=== PATIENT | male | born 1970 | race Caucasian/White ===

== ENCOUNTER 2016-10-15 03:17 | Inpatient (IN) ==
[2016-10-15] MEDS ORDERED: 0.9 % Sodium Chloride 1,000 ML IVC ONE (03:49)
[2016-10-15 03:58] LABS: Hematocrit 36.4 % (37.5-50.1); Hemoglobin 10.9 g/dL (12.9-16.9); Mean Corpuscular HGB Conc 29.9 g/dL (31.6-35.5); Mean Corpuscular Hemoglobin 27.8 pg (28.0-33.3); Mean Corpuscular Volume 92.9 fL (83.0-100.0); Mean Platelet Volume 10.1 fL (9.4-12.4); Platelet Count 202 K/mcL (140-400); Red Blood Count 3.92 M/mcL (4.19-5.50); Red Cell Distribution Width 12.3 % (11.5-14.5)
[2016-10-15 03:58] LABS: ABG Base Excess -18.1 mEq/L (-2.0 to 3.0); ABG HCO3 15.3 mEQ/L (21-27); ABG Oxygen Saturation 100 % (95-98); ABG PO2 336 mmHg (85-104); ABG TCO2 17.7 mEq/L (20-26)
[2016-10-15 04:00] LABS: ABG PCO2 78 mmHg (35-45)
[2016-10-15 04:01] LABS: Blood Gas FiO2 100 %
[2016-10-15 04:03] LABS: Prothrombin Time 11.1 Seconds (9.4-12.1)
[2016-10-15 04:06] LABS: Amphetamine Screen,Urine Negative ng/mL (Cutoff=1000); Barbiturate Screen,Urine Negative ng/mL (Cutoff=200); Benzodiazepines Screen,Urine Negative ng/mL (Cutoff=200); Cannabinoid Screen,Urine Negative ng/mL (Cutoff = 50); Cocaine Screen,Urine Negative ng/mL (Cutoff= 300); Opiate Screen,Urine Negative ng/mL (Cutoff=300); Phencyclidine Screen,Urine Negative ng/mL (Cutoff=25)
[2016-10-15 04:06] LABS: Activated Partial Thrombo Time 35.6 Seconds (26.0-36.0)
[2016-10-15] MEDS ORDERED: *HR* EPINEPHrine 1 MG/10 ML SYRINGE ONE (04:06)
[2016-10-15 04:10] LABS: BUN/Creatinine Ratio 8 (6-26); Blood Urea Nitrogen 12 mg/dL (8-26); Calcium 7.7 mg/dL (8.6-10.8); Carbon Dioxide 14 mEq/L (19-29); Chloride 105 mEq/L (98-109); Glucose 303 mg/dL (70-99); Magnesium 2.8 mg/dL (1.6-2.6); Osmolality,Calculated 303 (280-300); Potassium 3.3 mEq/L (3.5-4.5); Sodium 141 mEq/L (136-145); eGFR For African Americans 57 (> 60); eGFR For Non-African Americans 47 (> 60)
[2016-10-15] MEDS: EPINEPHrine 1 MG in D5% in Water 250 ML IVC SCH (04:12)
[2016-10-15 04:19] LABS: Digoxin < 0.3 ng/mL (0.8-2.0)
[2016-10-15 04:43] LABS: Lymphocytes # 5.9 K/mcL (0.6-4.6); Monocytes # 0.7 K/mcL (0.0-1.3); Neutrophils # 2.3 K/mcL (1.6-8.9); Platelet Estimate Normal (Normal)
--- NOTE | 2016-10-15 04:44 | Emergency Department Note ---
Disposition Clinical Impression: Cardiac arrest, Cardiopulmonary arrest with successful resuscitation Disposition: Admitted As Inpatient Condition: Critical Time of Disposition: 07:12 General Adult HPI - General Chief complaint: ED Cardiac Arrest/CPR Stated complaint: full arrest Time Seen by Provider: 10/15/16 03:49 Source: EMS - History of Present Illness HPI Narrative: Full code. Brought in by EMS. Down time approximately 10 minutes. Possible seizure prior to code. Pain Scale: 0 - Related Data Allergies Allergy/AdvReac Type Severity Reaction Status Date / Time No Known Allergies Allergy Verified 10/15/16 04:11 Limitations: ROS unobtainable due to patients medical condition Past Medical History - Past Medical History Medical history: Reports: no medical history - Social History Smoking Status: Unknown if ever smoked Physical Exam Patient in full cardiac arrest. Pupils are fixed and dilated. After intubation patient's lung sounds are clear bilaterally. There is no sounds over the epigastrium. It does not appear like patient had suffered any trauma. There are no abrasions to patient. I do not appreciate any rashes on patient. There are no gross deformities to the patient's extremity. - General General appearance: in distress Course Course Narrative: Palpation brought in by EMS in full cardiac arrest. They report that he walked into an apartment had a seizure and then went down. They advise a systole for them the whole time. They did place 2IO's and gave 1 mg of epinephrine. They placed a Major airway. Patient was found to have ice in his pants whenever he was moved to our bed. CPR was resumed. Another IV was placed. He was given 2 mg of epinephrine and 1 mg of atropine and 2 mg of Narcan. At the next pulse check is found to be in V. fib. We defibrillated this. A pulse was then found. A 12-lead was ran and patient was intubated. The [address] elevation in V2. He had ST depression in V4, V5, and V6. Dr. Warner was called and advised to call Dr. Syed. Dr. Ortiz advised the patient was not a Senior Officer patient and to begin therapeutic hypothermia. Patient subsequently went into cardiac arrest again. CPR was began patient was given additional doses of epinephrine as well as atropine and Narcan. Patient was then found to be in a sinus rhythm again. Patient was placed on vasopressors to maintain a blood pressure. A femoral central line was placed. Patient was then admitted to the hospital service. Patient's blood work was unremarkable. He was not in seizure activity at any point during his stay here. His pupils were fixed and dilated on arrival in the emergency department. Patient was given an amp of bicarbonate due to his acidosis state. Vital Signs Temperature 97.6 F 10/15/16 03:20 Pulse Rate 0 10/15/16 03:20 Respiratory Rate 0 10/15/16 03:20 Blood Pressure 0/0 10/15/16 03:20 O2 Sat by Pulse Oximetry 0 L 10/15/16 03:20 Temperature 96.3 F L 10/15/16 04:43 Pulse Rate 97 10/15/16 05:27 Respiratory Rate 13 10/15/16 06:23 Blood Pressure 134/78 10/15/16 06:23 O2 Sat by Pulse Oximetry 99 10/15/16 05:28 Oxygen Delivery Oxygen Delivery Ventilator Procedures - Central Line Placement Right Femoral Central Line Inserted*: Yes Central Line Catheter Replacement*: No Central Line Insertion: emergent Procedural Pause: verify patient name and date of , timeout performed per policy Patient Placed on Monitor/Pulse Ox: Yes During the Procedure: clinician is wearing sterile gloves, cap, mask,& gown during insertion, sterile field and sterile technique are maintained, patient's face is covered with drape or mask and wearing a cap, everyone in room is wearing a mask Central Line Prep: Chlorhexidine scrub Prep the Procedure Site: apply chloraprep to the skin using a back and forth scrubbing motion, apply chloraprep for 30 seconds (upper body), 1-2 min ( femoral sites), allow prep to dry, drape the patient with a full body drape Ultrasound Used for Placement: Yes Central Line Lumen Inserted: triple Post Procedure: sutured in place, good blood return, all ports aspirated, flushed, capped, sterile dressing applied, guide wire removed and visualized, dressing is dated Post Procedure X-Ray: tip of catheter in good position Patient Tolerated Procedure: well Complications: none Name of Clinician Inserting Central Line: Vee GARCIA Clinician Assisting/Completing Checklist: Dr Cervantes - Intubation Time out performed: No sedative: none Laryngoscope: fiber optic video scope ET Tube Size: 7.5 ET Tube Uncuffed: No Tube Secured Depth (cm): 23 Tube Secured Location: lips Tube Placement Confirmation: visualized tube passing through cords, equal breath sounds bilaterally, no breath sounds over epigastrium, confirmation by capnometry Patient Tolerated Procedure: well Intubation Complications: none Medical Decision Making - Lab Data Result diagrams: 10/15/16 03:40 10/15/16 06:00 Lab Results 10/15/16 10/15/16 10/15/16 Range/Units 03:25 03:40 03:40 WBC 9.0 (4.3-11.1) K/mcL RBC 3.92 L (4.19-5.50) M/mcL Hgb 10.9 L (12.9-16.9) g/dL Hct 36.4 L (37.5-50.1) % MCV 92.9 (83.0-100.0) fL MCH 27.8 L (28.0-33.3) pg MCHC 29.9 L (31.6-35.5) g/dL RDW 12.3 (11.5-14.5) % Plt Count 202 (140-400) K/mcL MPV 10.1 (9.4-12.4) fL Seg Neutrophils % 24.0 % Band Neutrophils % 2.0 (0-4) % Lymphocytes % 66.0 % Monocytes % 8.0 % Neutrophils # 2.3 (1.6-8.9) K/mcL Lymphocytes # 5.9 H (0.6-4.6) K/mcL Monocytes # 0.7 (0.0-1.3) K/mcL Platelet Estimate Normal (Normal) PT 11.1 (9.4-12.1) Seconds INR 1.0 APTT 35.6 (26.0-36.0) Seconds ABG pH (7.32-7.45) pH Units ABG pCO2 (35-45) mmHg ABG pO2 (85-104) mmHg ABG HCO3 (21-27) mEQ/L ABG Total CO2 (20-26) mEq/L ABG O2 Saturation (95-98) % ABG Base Excess (-2.0 to 3.0) mEq/L Blood Gas Modality Inspired O2 % Sodium (136-145) mEq/L Potassium (3.5-4.5) mEq/L Chloride (98-109) mEq/L Carbon Dioxide (19-29) mEq/L BUN (8-26) mg/dL Creatinine (0.72-1.25) mg/dL Est GFR ( Amer) (> 60) Est GFR (Non-Af Amer) (> 60) BUN/Creatinine Ratio (6-26) Glucose (70-99) mg/dL Calculated Osmolality (280-300) Calcium (8.6-10.8) mg/dL Magnesium (1.6-2.6) mg/dL Troponin I (0-0.03) ng/mL Digoxin (0.8-2.0) ng/mL Urine Opiates Screen Negative (Agmkux=701) ng/mL Ur Barbiturates Screen Negative (Fwfcan=736) ng/mL Ur Phencyclidine Scrn Negative (Cutoff=25) ng/mL Ur Amphetamines Screen Negative (Vmafvg=5700) ng/mL U Benzodiazepines Scrn Negative (Dcmynh=815) ng/mL Urine Cocaine Screen Negative (Cutoff= 300) ng/mL U Marijuana (THC) Screen Negative (Cutoff = 50) ng/mL 10/15/16 10/15/16 10/15/16 Range/Units 03:40 03:40 03:50 WBC (4.3-11.1) K/mcL RBC (4.19-5.50) M/mcL Hgb (12.9-16.9) g/dL Hct (37.5-50.1) % MCV (83.0-100.0) fL MCH (28.0-33.3) pg MCHC (31.6-35.5) g/dL RDW (11.5-14.5) % Plt Count (140-400) K/mcL MPV (9.4-12.4) fL Seg Neutrophils % % Band Neutrophils % (0-4) % Lymphocytes % % Monocytes % % Neutrophils # (1.6-8.9) K/mcL Lymphocytes # (0.6-4.6) K/mcL Monocytes # (0.0-1.3) K/mcL Platelet Estimate (Normal) PT (9.4-12.1) Seconds INR APTT (26.0-36.0) Seconds ABG pH 6.90 L* (7.32-7.45) pH Units ABG pCO2 78 H* (35-45) mmHg ABG pO2 336 H (85-104) mmHg ABG HCO3 15.3 L (21-27) mEQ/L ABG Total CO2 17.7 L (20-26) mEq/L ABG O2 Saturation 100 H (95-98) % ABG Base Excess -18.1 L (-2.0 to 3.0) mEq/L Blood Gas Modality ASSIST CONTROL Inspired O2 100 % Sodium 141 (136-145) mEq/L Potassium 3.3 L (3.5-4.5) mEq/L Chloride 105 (98-109) mEq/L Carbon Dioxide 14 L (19-29) mEq/L BUN 12 (8-26) mg/dL Creatinine 1.58 H (0.72-1.25) mg/dL Est GFR ( Amer) 57 L (> 60) Est GFR (Non-Af Amer) 47 L (> 60) BUN/Creatinine Ratio 8 (6-26) Glucose 303 H (70-99) mg/dL Calculated Osmolality 303 H (280-300) Calcium 7.7 L (8.6-10.8) mg/dL Magnesium 2.8 H (1.6-2.6) mg/dL Troponin I 0.01 (0-0.03) ng/mL Digoxin < 0.3 L (0.8-2.0) ng/mL Urine Opiates Screen (Cgwngl=390) ng/mL Ur Barbiturates Screen (Ltlwqs=792) ng/mL Ur Phencyclidine Scrn (Cutoff=25) ng/mL Ur Amphetamines Screen (Adhxol=6389) ng/mL U Benzodiazepines Scrn (Kovvgd=254) ng/mL Urine Cocaine Screen (Cutoff= 300) ng/mL U Marijuana (THC) Screen (Cutoff = 50) ng/mL 10/15/16 Range/Units 04:55 WBC (4.3-11.1) K/mcL RBC (4.19-5.50) M/mcL Hgb (12.9-16.9) g/dL Hct (37.5-50.1) % MCV (83.0-100.0) fL MCH (28.0-33.3) pg MCHC (31.6-35.5) g/dL RDW (11.5-14.5) % Plt Count (140-400) K/mcL MPV (9.4-12.4) fL Seg Neutrophils % % Band Neutrophils % (0-4) % Lymphocytes % % Monocytes % % Neutrophils # (1.6-8.9) K/mcL Lymphocytes # (0.6-4.6) K/mcL Monocytes # (0.0-1.3) K/mcL Platelet Estimate (Normal) PT (9.4-12.1) Seconds INR APTT (26.0-36.0) Seconds ABG pH 7.20 L* D (7.32-7.45) pH Units ABG pCO2 54 H D (35-45) mmHg ABG pO2 222 H (85-104) mmHg ABG HCO3 21.1 (21-27) mEQ/L ABG Total CO2 22.8 (20-26) mEq/L ABG O2 Saturation 100 H (95-98) % ABG Base Excess -7.2 L (-2.0 to 3.0) mEq/L Blood Gas Modality ASSIST CONTROL Inspired O2 100 % Sodium (136-145) mEq/L Potassium (3.5-4.5) mEq/L Chloride (98-109) mEq/L Carbon Dioxide (19-29) mEq/L BUN (8-26) mg/dL Creatinine (0.72-1.25) mg/dL Est GFR ( Amer) (> 60) Est GFR (Non-Af Amer) (> 60) BUN/Creatinine Ratio (6-26) Glucose (70-99) mg/dL Calculated Osmolality (280-300) Calcium (8.6-10.8) mg/dL Magnesium (1.6-2.6) mg/dL Troponin I (0-0.03) ng/mL Digoxin (0.8-2.0) ng/mL Urine Opiates Screen (Wymmjm=275) ng/mL Ur Barbiturates Screen (Ozokvi=623) ng/mL Ur Phencyclidine Scrn (Cutoff=25) ng/mL Ur Amphetamines Screen (Wbxmjm=2019) ng/mL U Benzodiazepines Scrn (Zzbcjm=552) ng/mL Urine Cocaine Screen (Cutoff= 300) ng/mL U Marijuana (THC) Screen (Cutoff = 50) ng/mL Critical Care Time Critical Care Time: Yes Total Critical Care Time: 90 Attestation: Critical care performed: Time is exclusive of separately billable procedures. Time includes: direct patient care, patient reassessment, coordination of patient care, interpretation of data (laboratory data, radiology data, and respiratory data), review of patient's medical records, medical consultation and documentation of patient care. Procedures included in critical care time: Procedures excluded from critical care time: CPR, endotracheal intubation, right femoral central line placement Attestation Statement - Attestation Attestation: I, Valdo Cervantes MD, personally performed a history and physical exam of the patient and discussed their management with the resident. I reviewed the resident's note and agree with the documented findings, medical decision making , and plan of care. 47-year-old male presented to the emergency department by EMS in full cardiopulmonary arrest. This was a witnessed arrest. Bystanders reported that patient had a seizure and then became unresponsive. EMS reports on their arrival the patient was in asystole. Patient received epinephrine per left shoulder IO access per EMS. Here in the emergency department the patient had additional IV access established and received epinephrine and atropine IV. His initial rhythm was asystole then developed ventricular fibrillation after receiving epinephrine and atropine. He was defibrillated one time at 200 rhythm post defibrillation was again asystole. He then developed a rhythm with a pulse. Patient lost his pulse and CPR was started a second time. After receiving epinephrine he regained a pulse. He also received 2 mg of Narcan IV 2 doses during the code. Patient was briefly placed on a norepinephrine drip but again dropped his blood pressure and became bradycardic so this was switched to an epinephrine drip. A right femoral central line was placed by Dr. Garcia under my direct supervision. His chest x-ray showed good placement of the endotracheal tube and oral gastric tube. A Barone catheter was also inserted. Initial blood gas showed a pH of 6.9. Patient received 1 amp of sodium bicarbonate. Dr. Garcia discussed the case with the road supervisor on-call, Dr. Warner and also the adult neurologist mutton puncher, Dr. Neff. They recommended cooling and admission to ICU. Twelve-lead EKG obtained showed anterolateral ST segment depression. No STEMI. The hospitalist, Dr. Haddad, was consulted and accepted admission of the patient.
[2016-10-15 05:04] LABS: ABG Base Excess -7.2 mEq/L (-2.0 to 3.0); ABG HCO3 21.1 mEQ/L (21-27); ABG Oxygen Saturation 100 % (95-98); ABG PCO2 54 mmHg (35-45); ABG PO2 222 mmHg (85-104); ABG TCO2 22.8 mEq/L (20-26)
[2016-10-15 05:06] LABS: Blood Gas FiO2 100 %
[2016-10-15] MEDS ORDERED: Calcium Gluconate 2,000 MG in D5% in Water 100 ML IVPB ONE (05:33)
[2016-10-15] MEDS ORDERED: Naloxone 0.4 MG/ML INJ IVP PRN ×2 (05:37)
[2016-10-15] MEDS ORDERED: Acetaminophen 650 MG RECTAL SUPP RC PRN (05:37)
[2016-10-15] MEDS ORDERED: *HR* Promethazine 25 MG/ML VIAL IVP PRN (05:37)
[2016-10-15] MEDS ORDERED: *HR* Morphine 2 MG/ML SYRINGE IVP PRN (05:37)
[2016-10-15] MEDS ORDERED: *HR* LORazepam 2 MG/ML VIAL IVP PRN (05:37)
[2016-10-15] MEDS ORDERED: Ketorolac 30 MG/ML VIAL IVP PRN (05:37)
[2016-10-15] MEDS ORDERED: Lacri-Lube 3.5 GM TUBE BOTH EYES PRN (05:37)
[2016-10-15] MEDS ORDERED: FentaNYL (PF) 1,000 MCG in 0.9 % Sodium Chloride 80 ML IVC SCH (05:45)
[2016-10-15] MEDS ORDERED: 0.9 % Sodium Chloride 1,000 ML IVC SCH (05:45)
[2016-10-15] MEDS ORDERED: Metoclopramide 10 MG/2 ML VIAL IVP ONE (05:47)
[2016-10-15] MEDS ORDERED: *HR* EPINEPHrine 1 MG/10 ML SYRINGE IVP ONE ×3 (06:09→06:13)
[2016-10-15] MEDS ORDERED: *HR* Atropine Sulfate 1 MG/10 ML SYRINGE IVP ONE (06:15)
[2016-10-15] MEDS ORDERED: Dexamethasone 4 MG/ML VIAL IVP SCH (06:15)
[2016-10-15] MEDS ORDERED: *HR* Meperidine 25 MG/ML SYRINGE IVP PRN (06:20)
[2016-10-15] MEDS ORDERED: *HR* Midazolam HCl 2 MG/2 ML VIAL IVP PRN (06:24)
[2016-10-15] MEDS: Potassium Chloride 40 MEQ/200 ML BAG IVPB SCH ×2 (06:29→07:21)
[2016-10-15 06:30] LABS: Ionized Calcium 0.95 mmol/L (1.15-1.35)
[2016-10-15 06:33] LABS: Bilirubin,Urine Negative (Negative); Blood,Urine Moderate (Negative); Clarity,Urine Turbid (Clear); Color,Urine Yellow (Yellow); Glucose,Urine (UA) 250 mg/dL (Normal); Ketones,Urine Negative (Negative); Leukocyte Esterase,Urine Negative (Negative); Nitrite,Urine Negative (Negative); Protein,Urine 30 mg/dL (Neg-Trace); Specific Gravity,Urine 1.006 (1.010-1.025); Urobilinogen,Urine Normal (Normal)
[2016-10-15 06:37] LABS: Calcium 7.5 mg/dL (8.6-10.8); Potassium 4.2 mEq/L (3.5-4.5)
[2016-10-15 06:40] LABS: Alanine Aminotransferase 166 Units/L (0-55); Albumin/Globulin Ratio 0.9 (1.1-2.2); Alkaline Phosphatase 134 Units/L (38-126); Aspartate Amino Transferase 205 Units/L (5-34); Bilirubin,Direct 0.3 mg/dL (0.0-0.5); Bilirubin,Indirect 0.2 mg/dL (0.0-1.2); Bilirubin,Total 0.5 mg/dL (0.2-1.2); Creatine Kinase 484 Units/L (30-200); Ethanol < 10 mg/dL (0-10); Globulin 3.3 g/dL (2.4-3.5); Magnesium 2.4 mg/dL (1.6-2.6); Phosphorous 7.1 mg/dL (2.3-4.7); Total Protein 6.3 g/dL (6.0-8.3)
[2016-10-15 06:53] LABS: Squamous Epithelial Cell,Urine Few per lpf (None-Few)
[2016-10-15 06:54] LABS: Bacteria,Urine Many per hpf (None-Few); RBC,Urine 0-3 per hpf (0-3)
[2016-10-15 06:55] LABS: Hematocrit 39.2 % (37.5-50.1); Hemoglobin 12.4 g/dL (12.9-16.9); Mean Corpuscular HGB Conc 31.6 g/dL (31.6-35.5); Mean Corpuscular Hemoglobin 27.2 pg (28.0-33.3); Mean Platelet Volume 9.8 fL (9.4-12.4); Platelet Count 205 K/mcL (140-400); Red Blood Count 4.56 M/mcL (4.19-5.50); Red Cell Distribution Width 12.5 % (11.5-14.5)
[2016-10-15 06:55] LABS: Mucus,Urine Few (Few)
[2016-10-15] MEDS: Dexamethasone 4 MG/ML VIAL IVP STA ×2 (06:56→06:59)
--- NOTE | 2016-10-15 07:00 | Internal Med History&Physical ---
Date of Encounter: 10/15/16 Time of Encounter: 05:30 Assessment and Plan (1) Cardiopulmonary arrest with successful resuscitation Status: Acute . (2) Multi-organ system dysfunction Status: Acute . (3) Cardiogenic shock Status: Acute . (4) Ventilator dependent Status: Acute . (5) Acute respiratory failure with hypoxia and hypercapnia Status: Acute . (6) Acute anoxic encephalopathy Status: Acute . (7) Coma of unknown cause Status: Acute . (8) Unknown if patient has history of cardiac disorders Status: Acute . (9) Unknown if patient has history of psychiatric disorder Status: Acute . (10) Unknown if patient has history of neurologic disorder Status: Acute . (11) Unknown family medical history Status: Acute . (12) Hypochromic anemia Status: Acute . (13) Acute kidney injury Status: Acute . (14) Acute hyperglycemia Status: Acute . (15) Lactic acidemia Status: Acute . (16) Hypocalcemia Status: Acute . (17) Hyperphosphatemia Status: Acute . (18) Shock liver Status: Acute . (19) Transaminitis Status: Acute . (20) Rhabdomyolysis Status: Acute . Qualifiers: Rhabdomyolysis type: non-traumatic Qualified Code(s): M62.82 - Rhabdomyolysis Internal Medicine - H&P: HPI Chief complaint: Unresponsiveness Admitted From: Emergency Dept Plans for Post Hospital Care: Home History of present illness: Mr. Parveen Morin" is a ~49 year old male -Norwegian/non reported to be a [place] resident visiting locally. Significant medical history is unavailable. Significant social history is unavailable. Patient was found down and unresponsive. He was a witnessed arrest. Bystanders reported that the patient had a seizure and then became completely unresponsive. EMS reported that upon their arrival the patient was in asystole. Immediately assessed to be in full cardiopulmonary arrest requiring CPR and ACLS measures in the field. Following arrival to the emergency department the patient required defibrillation 2. Continued aggressive resuscitative efforts with the initiation of vasopressor support 2. Intubation and ventilator management for complete respiratory failure. Initial clinical findings supported acute severe respiratory acidosis and multiorgan derangements. Anoxic brain injury is suggested via fixed and dilated and unresponsive pupils. Absent gag reflex. Peripheral areflexia. Neurodegenerative injury suggested by unresponsive reaction to extreme noxious stimuli and ventilator management without sedation or paralysis. Total dependence on cardio-pulmonary support measures. General physical survey revealed no evidence of traumatic injuries or overt physical assault. This was no evidence for cutaneous or osseous deformities. There was no evidence for open wounds, abrasions, lacerations, rashes or cutaneous infections. There is no evidence for peripheral embolic phenomena, ecchymoses or hematoma, petechiae or purpura. Patient admitted with no personal records available or identifying information. The patient presents extreme risk for further acute clinical decline, morbidity and mortality. Findings in the ED: Initial vital signs temperature 97.6 pulse respiration rate 0 BP 0/0 O2 saturation pulse oximetry 0. Vital signs post initiation of ventilator support and vasopressors temperature 96.3 pulse 112 respiration 18 BP 130/75 O2 saturation 99%. WBC 9 hemoglobin 10.9 hematocrit 36.4 MCH 27.8 MCHC 29.9 platelets 202,000. Differential shows an increase in lymphocytes. PT 11.1 INR 1 PTT 35.6. Initial arterial blood gas pH 6.9 PCO2 78 PO2 336 bicarbonate 15.3 O2 saturation 100% assist control ventilator support. Follow- up arterial blood gas pH 7.2 PCO2 54 PO2 222 bicarbonate 21.1 O2 saturation of 100% assist control ventilator management. Metabolic panel sodium 141 potassium 3.3 chloride 105 carbon dioxide 14 creatinine 1.66 GFR 44 BUN 14. Glucose 303 osmolality 301. Lactic acid 3.8. Calcium 7.5. Ionized calcium 0.95. Phosphorus 7.1. Magnesium 2.4. Hepatic function ast 25 ALT 166 alkaline phosphatase 134. Creatinine kinase 484. Troponin 0.01. Albumin 3.0 total protein 6.3. Urinalysis. Large routine large glucose moderate blood. RBC 15 WBC and epithelial cells many bacteria few mucus. Toxicology digoxin negative, urine drug screen negative, ethyl alcohol negative. Portable chest x- ray findings lungs and pleural spaces without acute focal process. Cardiomediastinal silhouette without acute process. No evidence for pneumothorax. Osseous structures without acute process. Cervical spine without contrast demonstrated no acute abnormality. Normal alignment. No evidence for fracture or dislocation. No significant degenerative changes or prevertebral soft tissue swelling. CT head without contrast demonstrates diffuse cerebral edema. Likely cardiogenic in nature. No significant uncal HERNIATION identified. No acute hemorrhage fluid collection hydrocephalus or infarct noted. Moderate paranasal sinus disease identified. No abnormality visualized skull or soft tissue identified. EKG showed sinus tachycardia(121). Evolving left axis deviation. Anterolateral ST segment depression. LVH by voltage criteria. ?LAE. Incomplete right bundle branch ventricular conduction delay. No evidence for ST elevation myocardial infarction. Cumulative laboratory and radiographic data base was reviewed, considered and discussed. Orders were written as per the computerized physician chief order dispatcher system.......................................................................... .................... Consultative opinions will be sought as clinical circumstances justify. Initial consultative requests submitted to pulmonary/critical care medicine and cardiology. Pain management needs will be addressed. Therapeutic Hypothermia protocol initiated. Mechanical ventilator management protocols initiated. Initial intubation and sedation of ventilator support has not required formal sedation or paralysis. If needed intravenous fentanyl drip and IV Versed therapies provided. Consideration for Precedex versus Propyfol anesthesia if clinical status permits. Laboratory and radiographic data base will be updated as appropriate. Studies include: Cultures of blood and urine and sputum, cardiac injury panels, BNP, metabolic and hematologic panels, magnesium, phosphorus, ionized calcium, thyroid panel, lipid profile, A1c, C-peptide, CRP, sedimentation rate, respiratory infection profile, respiratory virus panel, blood gas, urinalysis, UDS, lactic acid, HIV and p24, prolactin, acute hepatitis profile, procalcitonin , serologies, etc. Precautions: Aspiration, fall, seizure, delirium protocol/surveillance initiated. Telemetry with continuous hemodynamic monitoring and pulse oximetry initiated. Empiric antibiotic coverage: pending culture data. Anoxic brain injury/vasogenic edema protocol initiated: Intravenous Decadron. Intubation and mechanical ventilator support. Recommendation for intravenous mannitol drip if hemodynamic status permits. Consideration for neurosurgical opinion and intervention if clinical status supports. Special studies: CT chest, CT head, CT cervical spine, KUB, chest x-ray, acute abdomen series, telemetry, EKG, echocardiogram, EEG. Pulmonary toilet: Incentive spirometry, aerosol bronchodilator, mucolytic, antitussive, supplemental oxygen. Corticosteroid therapy. CPAP/BiPAP supplemental oxygen delivery may be employed if clinical status permits.. Aerosol Mucomyst therapy may be employed. Fluid and electrolyte repletion efforts will proceed. Careful attention to fluid balance and renal recovery will be emphasized. Avoidance of nephrotoxic exposure and adverse drug drug interaction in the setting of impaired renal function will be monitored closely. Correction of metabolic and acid-base deficits will be emphasized. Acute coronary syndrome protocol/surveillance initiated. Acute [employer] injury protocol/surveillance initiated. Electrolyte replacement protocol/surveillance initiated. DVT and PUD prophylaxis initiated: PPI therapy, intermittent pneumatic cuffs. Subcutaneous heparin/Lovenox. Cardiovascular risk appraisal and cardiovascular risk reduction efforts will be emphasized. Physical and occupational therapy may be consulted to evaluate/assess patient's functional capacity and progress mobility if his circumstances allow. Nutrition consultation for initiation of tube feeds/enteral nutritional support as circumstances justif Plan of care has been reviewed and discussed with attending staff. instructional support services director/case management will be enlisted to assist in formal identification of "Mr. Zafar Morin" and complete appropriate contacts with family and/or associates when feasible. Hospital course will depend upon cumulative clinical findings, anticipated treatment responses and potential consultative interventions. Patient is at a high risk for further acute clinical decline, morbidity and mortality due to his presenting chief complaint, premorbid findings and underlying comorbidities in the setting of multiorgan derangements.. Condition is serious/critical. Prognosis is guarded/poor. CODE STATUS is full. Past Med Surg Social Fam HX - Past Medical History Source: unable to obtain Medical history: no medical history Psychiatric history: no psych history - Past Surgical History Surgical History: no surgical history - Social History Smoking Status: Unknown if ever smoked Alcohol use: unknown Drug use: unknown Occupational status: unemployed Current living situation: Other Activity Level: Other - Family History Mother Living Status: Still Living Hx Family Endocrine Disorder: Yes (Mother with diabetes) Internal Medicine - H&P: Meds Unable To Obtain [Unable to Obtain] 10/16/16 [History] Allergies trazodone Allergy (Verified 01/02/16 11:16) Difficulty Breathing slows breathing ROS unobtainable: due to mental status All Systems PM: A 10-system review of systems was performed and is negative for pertinent findings except as documented above in the HPI. The patient presents acutely encephalopathic. No available personal records retrieval. Family and friends unavailable for validation of circumstances and events. Details as collected through triage upon intake. - Constitutional Constitutional: as per HPI - EENT Eyes: as per HPI Ears: as per HPI Nose, mouth and throat: as per HPI - Cardiovascular Cardiovascular ROS IM: as per HPI - Respiratory Respiratory: as per HPI - Gastrointestinal Gastrointestinal: as per HPI - Genitourinary Genitourinary ROS male: as per HPI - Musculoskeletal Musculoskeletal ROS IM: as per HPI - Integumentary Integumentary IM: as per HPI - Neurological Neurological ROS: as per HPI - Psychiatric Psychiatric: as per HPI - Endocrine Endocrine IM: as per HPI - Hematologic/Lymphatic Hematologic/Lymphatic: as per HPI - Allergic/Immunologic Allergic/Immunologic: as per HPI - Constitutional Vitals: Temp Pulse Resp BP Pulse Ox 91.4 F L 117 13 134/78 94 L 10/15/16 06:15 10/15/16 06:15 10/15/16 06:23 10/15/16 06:23 10/15/16 06:15 General appearance: Present: A&O X 0, severe distress. Absent: cooperative, answers questions appropriately - Head Head exam: Present: atraumatic, normocephalic - Expanded Head Exam Head exam expanded: Absent: abrasion, Chand's sign, contusion, hematoma, laceration, raccoon eyes - Eye Eye exam: Present: conjuntiva pink, sclera anicteric. Absent: periorbital swelling Pupils: Present: fixed (Fixed and dilated, left greater than right), irregular ( Irregular border of pupillary dilatation right eye. Haziness of lenses bilaterally.), unequal - Expanded Eye Exam Pupils: nonreactive/fixed: Bilateral - ENT ENT exam: Present: mucous membranes moist, normal external ear exam, normal oropharynx - Neck Neck exam general surgery: Present: supple, trachea midline. Absent: lymphadenopathy, nuchal rigidity - Expanded Neck Exam Neck exam: Absent: anterior neck swelling, carotid bruit, midline deformity, thyroid mass, tracheal deviation - Respiratory Respiratory exam: Present: decreased breath sounds, CTAB. Absent: accessory muscle use, rales, rhonchi, wheezes - Cardiovascular Cardiovascular exam: Present: distant heart sounds, RRR, +S1, +S2, tachycardia. Absent: diastolic murmur, gallop, rubs, systolic murmur - GI/Abdominal GI/Abdominal exam: Present: diminished bowel sounds, soft, no peritoneal signs. Absent: distended, tenderness - Expanded GI/Abdominal Exam GI/Abdominal exam expanded: Absent: ascites, heel tap sign, Green's sign, obturator sign, psoas sign, Rovsing's sign, tenderness at McBurney's Point - Extremities Exam Extremities exam: Present: warm, radial pulses palpable and symetrical. Absent : calf tenderness, cyanotic, pedal edema - Neurological Exam Neurological exam: Present: altered, motor sensory deficit. Absent: alert, CN II-XII intact, oriented X3, reflexes normal, no focal deficits, pronater drift, facial droop, speech deficit - Expanded Neurological Exam Neurological exam expanded: Absent: protecting the airway Patient oriented to: Absent: person, place, time Coma Scale Eye Opening: None Coma Scale Motor Response: None Coma Scale Verbal Response: None Coma Scale Total: 3 - Psychiatric Psychiatric exam: Present: flat affect - Skin Skin exam: Present: dry, intact, warm. Absent: abrasion, erythema, excoriation , petechiae, rash, urticaria, vesicles Internal Med - H&P Results - Labs CBC & Chem 7: 10/16/16 13:05 10/16/16 04:25 Labs: BMP 10/15/16 06:00 Sodium 140 Potassium 4.2 Chloride 107 Carbon Dioxide 21 BUN 14 Creatinine 1.66 H Glucose 280 H Calcium 7.5 L Liver Function 10/15/16 Range/Units 06:00 Total Bilirubin 0.5 (0.2-1.2) mg/dL Direct Bilirubin 0.3 (0.0-0.5) mg/dL AST 205 H (5-34) Units/L ALT 166 H (0-55) Units/L Alkaline Phosphatase 134 H (38-126) Units/L Albumin 3.0 L (3.5-5.0) g/dL Urine 10/15/16 Range/Units 06:10 Urine Color Yellow (Yellow) Urine Clarity Turbid A (Clear) Urine pH 7.0 (5.0-8.0) pH Units Ur Specific [place] 1.006 L (1.010-1.025) Urine Protein 30 H (Neg-Trace) mg/dL Urine Glucose (UA) 250 H (Normal) mg/dL - Impressions Vital Signs Temp Pulse Resp BP Pulse Ox 10/15/16 06:30 91.4 F L 115 12 122/88 97 10/15/16 06:23 13 134/78 10/15/16 06:15 91.4 F L 117 12 120/78 94 L 10/15/16 06:00 91.4 F L 122 12 152/104 96 10/15/16 05:50 91.8 F L 121 12 154/111 96 10/15/16 05:28 12 99 10/15/16 05:27 97 157/91 97 10/15/16 04:43 96.3 F L 112 130/75 99 10/15/16 04:34 112 135/76 99 10/15/16 04:22 96 107/83 99 10/15/16 04:15 84 80/47 98 10/15/16 04:10 100 10/15/16 04:03 116 18 128/56 100 10/15/16 03:40 100 10/15/16 03:20 97.6 F 0 0 0/0 0 L Intake and Output 10/14/16 10/14/16 10/15/16 15:59 23:59 07:59 Intake Total 1051 / 1051 Output Total 700 / 700 Balance 351 / 351 Intake: IV Fluids 1051 / 1051 0.9 % Sodium Chloride 1, 1000 / 1000 000 ML @ 3750 mls/hr IVC .Q16M ONE Rx#:[id number] EPINEPHrine 1 MG In 51 / 51 Dextrose 5% 250 ML @ 0.1 MCG/KG/MIN 126.37 mls/hr IVC CONT SHARMIN Rx#: [id number] Output: Catheter 700 / 700 Other: Weight 83.915 kg Patient Weight 10/15/16 23:59 Weight 83.915 kg Short CBC 10/15/16 10/15/16 Range/Units 06:00 03:40 WBC 5.0 9.0 (4.3-11.1) K/mcL Hgb 12.4 L D 10.9 L (12.9-16.9) g/dL Hct 39.2 36.4 L (37.5-50.1) % Plt Count 205 202 (140-400) K/mcL Neutrophils # 2.3 (1.6-8.9) K/mcL BMP 10/15/16 10/15/16 Range/Units 06:00 03:40 Sodium 140 141 (136-145) mEq/L Potassium 4.2 3.3 L (3.5-4.5) mEq/L Chloride 107 105 (98-109) mEq/L Carbon Dioxide 21 14 L (19-29) mEq/L BUN 14 12 (8-26) mg/dL Creatinine 1.66 H 1.58 H (0.72-1.25) mg/dL Glucose 280 H 303 H (70-99) mg/dL Calcium 7.5 L 7.7 L (8.6-10.8) mg/dL Cardiac Enzymes 10/15/16 Range/Units 03:40 Troponin I 0.01 (0-0.03) ng/mL Liver Function 10/15/16 Range/Units 06:00 Total Bilirubin 0.5 (0.2-1.2) mg/dL Direct Bilirubin 0.3 (0.0-0.5) mg/dL AST 205 H (5-34) Units/L ALT 166 H (0-55) Units/L Alkaline Phosphatase 134 H (38-126) Units/L Albumin 3.0 L (3.5-5.0) g/dL Urine 10/15/16 Range/Units 06:10 Urine Color Yellow (Yellow) Urine Clarity Turbid A (Clear) Urine pH 7.0 (5.0-8.0) pH Units Ur Specific [place] 1.006 L (1.010-1.025) Urine Protein 30 H (Neg-Trace) mg/dL Urine Glucose (UA) 250 H (Normal) mg/dL 10/15/16 10/15/16 03:50 04:55 ABG pH 6.90 L* 7.20 L* D ABG pCO2 78 H* 54 H D ABG pO2 336 H 222 H ABG HCO3 15.3 L 21.1 ABG Total CO2 17.7 L 22.8 ABG O2 Saturation 100 H 100 H ABG Base Excess -18.1 L -7.2 L Abnormal lab results Hgb 12.4 g/dL (12.9-16.9) L D 10/15/16 06:00 MCH 27.2 pg (28.0-33.3) L 10/15/16 06:00 Lymphocytes # 5.9 K/mcL (0.6-4.6) H 10/15/16 03:40 ABG pH 7.20 pH Units (7.32-7.45) L* D 10/15/16 04:55 ABG pCO2 54 mmHg (35-45) H D 10/15/16 04:55 ABG pO2 222 mmHg (85-104) H 10/15/16 04:55 ABG O2 Saturation 100 % (95-98) H 10/15/16 04:55 ABG Base Excess -7.2 mEq/L (-2.0 to 3.0) L 10/15/16 04:55 Creatinine 1.66 mg/dL (0.72-1.25) H 10/15/16 06:00 Est GFR ( Amer) 53 (> 60) L 10/15/16 06:00 Est GFR (Non-Af Amer) 44 (> 60) L 10/15/16 06:00 Glucose 280 mg/dL (70-99) H 10/15/16 06:00 POC Glucose 259 (58-89) H 10/15/16 06:00 Calculated Osmolality 301 (280-300) H 10/15/16 06:00 Lactic Acid 3.8 mmol/L (0.5-2.2) H 10/15/16 06:00 Calcium 7.5 mg/dL (8.6-10.8) L 10/15/16 06:00 Ionized Calcium 0.95 mmol/L (1.15-1.35) L 10/15/16 06:00 Phosphorus 7.1 mg/dL (2.3-4.7) H 10/15/16 06:00 AST 205 Units/L (5-34) H 10/15/16 06:00 ALT 166 Units/L (0-55) H 10/15/16 06:00 Alkaline Phosphatase 134 Units/L (38-126) H 10/15/16 06:00 Creatine Kinase 484 Units/L (30-200) H 10/15/16 06:00 Albumin 3.0 g/dL (3.5-5.0) L 10/15/16 06:00 Albumin/Globulin Ratio 0.9 (1.1-2.2) L 10/15/16 06:00 Urine Clarity Turbid (Clear) A 10/15/16 06:10 Ur Specific [place] 1.006 (1.010-1.025) L 10/15/16 06:10 Urine Protein 30 mg/dL (Neg-Trace) H 10/15/16 06:10 Urine Glucose (UA) 250 mg/dL (Normal) H 10/15/16 06:10 Urine Blood Moderate (Negative) H 10/15/16 06:10 Urine Microscopic WBC 5-15 per hpf (0-3) H 10/15/16 06:10 Urine Bacteria Many per hpf (None-Few) H 10/15/16 06:10 Digoxin < 0.3 ng/mL (0.8-2.0) L 10/15/16 03:40 No Known Allergies Allergy (Verified 10/15/16 04:11) Laboratory Results WBC 5.0 K/mcL (4.3-11.1) 10/15/16 06:00 RBC 4.56 M/mcL (4.19-5.50) 10/15/16 06:00 Hgb 12.4 g/dL (12.9-16.9) L D 10/15/16 06:00 Hct 39.2 % (37.5-50.1) 10/15/16 06:00 MCV 86.0 fL (83.0-100.0) 10/15/16 06:00 MCH 27.2 pg (28.0-33.3) L 10/15/16 06:00 MCHC 31.6 g/dL (31.6-35.5) 10/15/16 06:00 RDW 12.5 % (11.5-14.5) 10/15/16 06:00 Plt Count 205 K/mcL (140-400) 10/15/16 06:00 MPV 9.8 fL (9.4-12.4) 10/15/16 06:00 Seg Neutrophils % 24.0 % 10/15/16 03:40 Band Neutrophils % 2.0 % (0-4) 10/15/16 03:40 Lymphocytes % 66.0 % 10/15/16 03:40 Monocytes % 8.0 % 10/15/16 03:40 Neutrophils # 2.3 K/mcL (1.6-8.9) 10/15/16 03:40 Lymphocytes # 5.9 K/mcL (0.6-4.6) H 10/15/16 03:40 Monocytes # 0.7 K/mcL (0.0-1.3) 10/15/16 03:40 Platelet Estimate Normal (Normal) 10/15/16 03:40 PT 11.1 Seconds (9.4-12.1) 10/15/16 03:40 INR 1.0 10/15/16 03:40 APTT 35.6 Seconds (26.0-36.0) 10/15/16 03:40 ABG pH 7.20 pH Units (7.32-7.45) L* D 10/15/16 04:55 ABG pCO2 54 mmHg (35-45) H D 10/15/16 04:55 ABG pO2 222 mmHg (85-104) H 10/15/16 04:55 ABG HCO3 21.1 mEQ/L (21-27) 10/15/16 04:55 ABG Total CO2 22.8 mEq/L (20-26) 10/15/16 04:55 ABG O2 Saturation 100 % (95-98) H 10/15/16 04:55 ABG Base Excess -7.2 mEq/L (-2.0 to 3.0) L 10/15/16 04:55 Blood Gas Modality ASSIST CONTROL 10/15/16 04:55 Inspired O2 100 % 10/15/16 04:55 Sodium 140 mEq/L (136-145) 10/15/16 06:00 Potassium 4.2 mEq/L (3.5-4.5) 10/15/16 06:00 Chloride 107 mEq/L (98-109) 10/15/16 06:00 Carbon Dioxide 21 mEq/L (19-29) 10/15/16 06:00 BUN 14 mg/dL (8-26) 10/15/16 06:00 Creatinine 1.66 mg/dL (0.72-1.25) H 10/15/16 06:00 Est GFR ( Amer) 53 (> 60) L 10/15/16 06:00 Est GFR (Non-Af Amer) 44 (> 60) L 10/15/16 06:00 BUN/Creatinine Ratio 8 (6-26) 10/15/16 06:00 Glucose 280 mg/dL (70-99) H 10/15/16 06:00 POC Glucose 259 (58-89) H 10/15/16 06:00 Calculated Osmolality 301 (280-300) H 10/15/16 06:00 Lactic Acid 3.8 mmol/L (0.5-2.2) H 10/15/16 06:00 Calcium 7.5 mg/dL (8.6-10.8) L 10/15/16 06:00 Ionized Calcium 0.95 mmol/L (1.15-1.35) L 10/15/16 06:00 Phosphorus 7.1 mg/dL (2.3-4.7) H 10/15/16 06:00 Magnesium 2.4 mg/dL (1.6-2.6) 10/15/16 06:00 Total Bilirubin 0.5 mg/dL (0.2-1.2) 10/15/16 06:00 Direct Bilirubin 0.3 mg/dL (0.0-0.5) 10/15/16 06:00 Indirect Bilirubin 0.2 mg/dL (0.0-1.2) 10/15/16 06:00 AST 205 Units/L (5-34) H 10/15/16 06:00 ALT 166 Units/L (0-55) H 10/15/16 06:00 Alkaline Phosphatase 134 Units/L (38-126) H 10/15/16 06:00 Creatine Kinase 484 Units/L (30-200) H 10/15/16 06:00 Troponin I 0.01 ng/mL (0-0.03) 10/15/16 03:40 Serum Total Protein 6.3 g/dL (6.0-8.3) 10/15/16 06:00 Albumin 3.0 g/dL (3.5-5.0) L 10/15/16 06:00 Globulin 3.3 g/dL (2.4-3.5) 10/15/16 06:00 Albumin/Globulin Ratio 0.9 (1.1-2.2) L 10/15/16 06:00 Urine Color Yellow (Yellow) 10/15/16 06:10 Urine Clarity Turbid (Clear) A 10/15/16 06:10 Urine pH 7.0 pH Units (5.0-8.0) 10/15/16 06:10 Ur Specific [place] 1.006 (1.010-1.025) L 10/15/16 06:10 Urine Protein 30 mg/dL (Neg-Trace) H 10/15/16 06:10 Urine Glucose (UA) 250 mg/dL (Normal) H 10/15/16 06:10 Urine Ketones Negative mg/dL (Negative) 10/15/16 06:10 Urine Blood Moderate (Negative) H 10/15/16 06:10 Urine Nitrite Negative (Negative) 10/15/16 06:10 Urine Bilirubin Negative (Negative) 10/15/16 06:10 Urine Urobilinogen Normal mg/dL (Normal) 10/15/16 06:10 Ur Leukocyte Esterase Negative (Negative) 10/15/16 06:10 Urine Microscopic RBC 0-3 per hpf (0-3) 10/15/16 06:10 Urine Microscopic WBC 5-15 per hpf (0-3) H 10/15/16 06:10 Ur Squamous Epith Cells Few per lpf (None-Few) 10/15/16 06:10 Urine Bacteria Many per hpf (None-Few) H 10/15/16 06:10 Urine Mucus Few (Few) 10/15/16 06:10 Digoxin < 0.3 ng/mL (0.8-2.0) L 10/15/16 03:40 Urine Opiates Screen Negative ng/mL (Ktallp=702) 10/15/16 03:25 Ur Barbiturates Screen Negative ng/mL (Ymslrk=016) 10/15/16 03:25 Ur Phencyclidine Scrn Negative ng/mL (Cutoff=25) 10/15/16 03:25 Ur Amphetamines Screen Negative ng/mL (Ytkaul=8910) 10/15/16 03:25 U Benzodiazepines Scrn Negative ng/mL (Gjcudv=222) 10/15/16 03:25 Urine Cocaine Screen Negative ng/mL (Cutoff= 300) 10/15/16 03:25 U Marijuana (THC) Screen Negative ng/mL (Cutoff = 50) 10/15/16 03:25 Ethyl Alcohol < 10 mg/dL (0-10) 10/15/16 06:00 Impressions Chest X-Ray 10/15/16 03:50 IMPRESSION: No acute process. Endotracheal tube located 2.8 cm above the loretta D/ / Kuldeep Jasmine MD / Kuldeep Jasmine MD Interpreting Provider: Kuldeep Jasmine MD X-Ray 10/15/16 04:30 IMPRESSION: Right femoral catheter is identified with the tip projecting over the right sacral ala of D/ / Kuldeep Jasmine MD / Kuldeep Jasmine MD Interpreting Provider: Kuldeep Jasmine MD Cervical Spine CT 10/15/16 04:49 IMPRESSION: No acute abnormality of the cervical spine. D/ / Kuldeep Jasmine MD / Kuldeep Jasmine MD Interpreting Provider: Kuldeep Jasmine MD Head CT 10/15/16 04:49 IMPRESSION: Diffuse cerebral edema likely cardiogenic in nature. No significant uncal herniation is identified. D/ / Kuldeep Jasmine MD / Kuldeep Jasmine MD Interpreting Provider: Kuldeep Jasmine MD
[2016-10-15] MEDS: Pantoprazole 40 MG VIAL IVP SCH (07:56)
[2016-10-15] MEDS: *HR* Heparin 5,000 UNIT/ML VIAL SQ SCH ×3 (07:56→23:15)
[2016-10-15] MEDS: Chlorhexidine Rinse 15 ML MOUTHWASH MM SCH ×2 (07:56→20:48)
[2016-10-15 08:09] LABS: Acetaminophen < 1.0 mcg/mL (10-30); Salicylate < 5.0 mg/dL (15-30)
[2016-10-15] MEDS ORDERED: Potassium Chloride 40 MEQ/200 ML BAG IVPB PRN ×2 (08:50→09:12)
[2016-10-15] MEDS ORDERED: Nystatin SUSP 5 ML UD.LIQ PO SCH (09:00)
[2016-10-15] MEDS ORDERED: Docusate Oral Soln 100 MG/10 ML UDC GTUBE SCH (09:00)
[2016-10-15] MEDS ORDERED: Magnesium Sulfate 2 GM in D5% in Water 100 ML IVPB PRN (09:12)
[2016-10-15] MEDS ORDERED: Calcium Gluconate 1,000 MG in D5% in Water 100 ML IVPB PRN (09:12)
[2016-10-15 09:19] LABS: ABG Base Excess -1.3 mEq/L (-2.0 to 3.0); ABG HCO3 24.8 mEQ/L (21-27); ABG Oxygen Saturation 91 % (95-98); ABG PCO2 46 mmHg (35-45); ABG PH 7.34 pH Units (7.32-7.45); ABG PO2 64 mmHg (85-104); ABG TCO2 26.2 mEq/L (20-26); Blood Gas FiO2 60 %
[2016-10-15] MEDS: Lacri-Lube 3.5 GM TUBE BOTH EYES SCH ×5 (09:36→23:41)
[2016-10-15] MEDS: Norepinephrine 4 MG in D5% in Water 250 ML IV SCH (10:38)
--- NOTE | 2016-10-15 11:43 | EEG/EMG/Oth Biometrics Report ---
EEG Procedure Report Date of procedure: 10/15/16 EEG Procedure: Routine EEG Procedure Note: PT found unresponsive, no history available, intubated no sedation Routine EEG Routine 18-channel digital EEG was obtained to rule out any seizure activity or focal abnormalities, on a patient who is unresponsive on ventilator. FINDINGS: Background rhythm shows less -organized, less -developed, average voltage 2- 3 hertz very low amplitude delta activity in the posterior regions. with no reactivity to any external stimuli, No [id number]-tbtu discharges or any lateralizing abnormalities are seen. Photic stimulation did not produce any abnormalities. Hyperventilation was not performed. Intermittent artifacts particularly in t3 and t5 leads were seen. IMPRESSION: Significantly Abnormal study. No epileptiform discharges or any other paroxysmal activities or focal abnormalities seen. This study shows significant slowing at the level of almost no brain activity, this pattern of abnormal activity is usually seen as severe encephalopathy particularly anoxic hypoxic encephalopathy, as well as with other metabolic encephalopathies consistent with diffuse cortical dysfunction. Pattern usually associated with poor clinical outcome. Clinical correlation is recommended
[2016-10-15 12:15] LABS: Ionized Calcium 1.16 mmol/L (1.15-1.35)
[2016-10-15 12:21] LABS: Magnesium 2.6 mg/dL (1.6-2.6)
[2016-10-15 12:22] LABS: Phosphorous 1.1 mg/dL (2.3-4.7)
[2016-10-15] MEDS ORDERED: D5% in Water 1,000 ML IVC SCH (13:30)
[2016-10-15] MEDS: Sodium Phosphate 30 MMOL in D5% in Water 100 ML IVPB PRN (15:00)
--- NOTE | 2016-10-15 16:41 | Electrocardiograph Report ---
[facility] Test Date: 2016-10-15 Pat Name: Benoit Rahman Department: 105 Room: 06 Gender: M Rn Wellness: ROSARIO : 1970 Requested By: Derrek Quintana Order Number: [id number] Reading MD: Domingo Sharpe DO Measurements Intervals [place] Rate: 101 P: DE: 0 QRS: 24 QRSD: 112 T: -9 QT: 388 QTc: 446 Interpretive Statements Atrial fibrillation with RVR Incomplete RBBB Anterolateral ST-T changes possibly due to ischemia Electronically Signed On 10-15-16 16:40:50 EST by Domingo Sharpe DO
--- NOTE | 2016-10-15 16:43 | Electrocardiograph Report ---
[facility] Test Date: 2016-10-15 Pat Name: Benoit Rahman Department: 105 Room: 06 Gender: M Salon/Spa Manager: ROSARIO : 1970 Requested By: Vee Allen Order Number: [id number] Reading MD: Domingo Sharpe DO Measurements Intervals [place] Rate: 121 P: 67 RI: 166 QRS: 15 QRSD: 102 T: 31 QT: 352 QTc: 424 Interpretive Statements Sinus tachycardia ST-T changes due to rate Electronically Signed On 10-15-16 16:41:54 EST by Domingo Sharpe DO
--- NOTE | 2016-10-15 17:18 | Event Note ---
<Vik Juarez - Last Filed: 10/15/16 17:10> Date of Encounter: 10/15/16 Time of Encounter: 07:00 Please note that this is a pulmonology consult note as currently a system air is not allowing documentation under the pulmonology consult note setting. Subjective: Patient presented overnight after cardiac arrest. Information prior to arrival to the limited. There is concern that the patient was down for 10 minutes prior to EMS arrival. Upon EMS arrival the patient was found to be in asystole. ACLS was initiated and the patient was transported to the ED. Upon arrival ACLS was continued. At some point the patient was found to have ventricular fibrillation and was defibrillated. The pulse was returned at that time. Shortly thereafter the patient lost the pulse and was defibrillated again. Patient was then stabilized and transferred to the emergency department. Upon arrival here hypothermia protocol was initiated. There are no family or witnesses of this event or related to the patient that can be found at this time. Law Enforcement is assisting in identifying the patient: Objective: Please see vital signs in the chart Gen.: Patient is comatose and does not respond to commands at this time. Patient is cool to touch Cardiac: Heart is regular rhythm, tachycardic. There are no murmurs, rubs, gallops. Respiratory: Patient is intubated and mechanically ventilated. Lungs are diminished but clear. There are no rales, rhonchi, wheezes. Abdomen: Abdomen is soft, nontender, nondistended. There are no bowel sounds. There is no rigidity or guarding noted Extremities: Peripheral pulses palpable in all 4 extremities. Extremities are cool to touch. There is no edema or cyanosis noted Neuro: GCS 3. All reflexes are absent. Pupils are fixed and dilated. There is no spontaneous movement in any extremities. There is no response to pain. Assessment and plan: #1. Cardiac arrest: Cause unknown at this time. Differential includes cardiac event, drug overdose. There is isolated ST elevation and a single lead however there is no evidence of a large scale cardiac event. Echo pending. Cardiology has been consulted. Tox screen was negative. We will continue with therapeutic hypothermia. #2. Anoxic brain injury: Likely related to cardiac arrest as stated above. EEG shows almost no brain activity related to severe anoxic brain injury. We will continue with hypothermia protocol for 24 hours. Upon rewarming we will assess the patient's neurologic status. Prognosis is extremely poor. #3. Acute kidney injury: Creatinine is elevated on presentation at 1.66. Likely related to hypoperfusion in the setting of cardiac arrest. Patient has good urine output. We will continue to monitor. #4. Elevated liver enzymes: Likely related to hypoperfusion in the setting of cardiac arrest. Other causes could include drug toxicity, viral etiologies. Tylenol level was negative. Continue to monitor and reevaluate if necessary. <JoesphteresaJerrod osullivan M - Last Filed: 10/15/16 23:03> This is pulmonary and critical care consult I examined this patient and my medical decision-making was reviewed with the IDEA MAN/PA/Advanced Practice Nurse/Resident Physician. I agree with the documented findings, disposition and treatment plan as described except to the extent set forth below. Patient seen and examine and all labs and images reviewed Patient is not able to give history with GCS of 3 and patient on the ventilator Patient came as Elliot , but later was found he is a Vincent Rahman I called his mother and she was not able to give history or to come, she lives in [place]. She was crying all the time over the phone Neurologically, patient GCS is 3 and no reflexes (cough/gag/pupils/corneal) and he is under hypothermia protocol, but still suspect the outcome is very poor and EEG was done with evidence suggest poor outcome. I don't feel he will have a good outcome because of anoxic brain injury. Pulmonary: Patient is not breathing over the ventilator and I tried SBT, patient has apnea and made change in the vent with increase respiratory rate due to acute hypercapnic respiratory failure Cardiovascular: patient has cardiac arrest and s/p code blue. There is still a chance he could have more arrythmia especially with hypothermia ID: there is no obvious source of infection Endocrine: Keep blood glucose 140-180 GI: prophylaxis and keep NPO Renal: Monitor electrolytes and renal function Heme: DVT prophylaxis Overall prognosis is very poor and LOOP contacted for possible organ donation. Critical care time 65 minutes.
--- NOTE | 2016-10-15 17:38 | ECHO - Doppler Report ---
Echocardiogram Name: Benoit Rahman Date of Study: 10/15/2016 Date: 1970 Ht: 72.0 in Medical Record#: [id number] Age: 46 Wt: 164.0 lb Gender: Male BSA: 1.96 Order #: [id number] Location: [facility] Room #: ICU06 Reading Physician: Zuly Adorno DO Rib Stiffener And Heel Dipper: Tye Lockett RN Ordering Physician: Derrek Quintana MD Primary Physician: None Indications: Acute Coronary Syndrome Impressions: LVEF 65%. Normal left ventricular size and systolic function. Normal right ventricular size and function. Mild pulmonic regurgitation. No significant TR gradient to estimate RVSP. Left Ventricular Wall Motion: Rest Echo Findings All wall segments showed normal motion. Findings: Study Quality * Technically adequate exam. ECG Findings * Normal sinus rhythm. Left Ventricle * LVEF 65%. * Normal LV chamber size, wall thickness and function. * Indeterminate diastolic function. Right Ventricle * Normal right ventricular structure and function. Left Atrium * Normal left atrial size. Right Atrium * Normal right atrial size. Interatrial Septum * No evidence of PFO by color Doppler. Aortic Valve * Trileaflet aortic valve. * Normal aortic valve structure. * No aortic regurgitation. * No aortic stenosis. Mitral Valve * Normal mitral valve structure. * No mitral stenosis. * Trace mitral regurgitation. Tricuspid Valve * Normal tricuspid valve structure. * Trace tricuspid regurgitation. Pulmonic Valve * Pulmonic valve is not well visualized. * No pulmonic stenosis. * Mild pulmonic regurgitation. Aorta * Normally sized aortic root. Pericardium * There is no pericardial effusion present. IVC * The IVC is not dilated. Pulmonary Artery * Pulmonary artery not well visualized. History Measurements: BP: 134/ 96 2D Normal Values RVIDd: 2.90 cm <2.7 cm IVSd: .90 cm 0.6 - 1.0 cm LVIDd: 4.10 cm 3.7 - 5.6 cm LVPWd: .90 cm 0.6 - 1.1 cm LVIDs: 2.90 cm 1.5 - 3.6 cm LA: 3.20 cm 2.0 - 4.0cm %FS: 29.30 cm >25 % LVOT Diam: 2.00 cm LA volume: 31 Mitral Valve Peak E:.73 m/sec Peak A:.35 m/sec E/A Ratio:2.1 Peak E' Lat Amrik:7.99 cm/s Peak E' Med Amrik:10.9 cm/s E/E' Lat Ratio:9.1 E/E' Med Ratio:6.7 Updated by Zuly Adorno on 10/15/2016 5:33:41 PM electronically signed on 10/15/2016 5:34:52 PM with status of Final Wall Motion Morales: 1=Normal, 2=Hypokinesis, 3=Akinesis, 4=Dyskinesis, 5=Aneurysmal, 6=Hyperkinetic, X=Not Visualized (Blank)=Missing
--- NOTE | 2016-10-15 17:40 | Event Note ---
Date of Encounter: 10/15/16 Time of Encounter: 15:00 - Cardiology Event Note Unable to complete Cardiology Consult Note in [facility] due to [employer] error. This will serve as my consult note. CC: Patient unresponsive HPI: Mr. Rahman is a 46 year old male presenting by EMS. I reviewed the ER records stating he was found down after possibly experiencing seizure like activity. He was asystolic in the squad. No rhythm strips are available for review. CPR was continued while in ER. He was found to be in VF in ER and defibrillated. He was stabilized and transferred to ICU under hypothermic protocol. His initial ECG demonstrated nonspecific ST abnormalities and no acute ECG findings. Troponin initially was negative. Patient is intubated. He has demonstrated poor neurologic signs. ROS: Unable to obtain due to patient mental status PMH: Patient initially presented as Zafar Morin without family members. No documented PMH. PSH: Unable to obtain. Social Hx: Unable to obtain Family Hx: Unable to obtain Drug Allergies: Trazadone Vital signs reviewed as seen below Physical Exam: General: Intubated, not responsive to stimuli HEENT: JVP not elevated Heart: Regular rate and rhythm, no apparent murmur, no gallop Lungs: Clear to ausculation Abdomen: Soft, hypoactive bowel sounds Extremities: No significant LE edema, palpable distal pulses Neurologic: No response to tactile or verbal stimuli Psych: Unable to obtain Selected Entries 10/15/16 15:00 Temperature 91.7 F L Pulse Rate 82 Respiratory Rate 14 Blood Pressure 141/102 O2 Sat by Pulse Oximetry 94 L Laboratory Tests 10/15/16 10/15/16 10/15/16 03:40 03:40 03:40 Hgb 10.9 L Plt Count 202 INR 1.0 Creatinine 1.58 H Troponin I 10/15/16 03:40 Hgb Plt Count INR Creatinine Troponin I 0.01 Chest X-Ray 10/15/16 03:50 IMPRESSION: No acute process. Endotracheal tube located 2.8 cm above the loretta D/ / Kuldeep Jasmine MD / Kuldeep Jasmine MD Interpreting Provider: Kuldeep Jasmine MD X-Ray 10/15/16 04:30 IMPRESSION: Right femoral catheter is identified with the tip projecting over the right sacral ala. D/ / 10/15/2016 07:48:28 Kuldeep Jasmine MD / [facility] Interpreting Provider: Kuldeep Jasmine MD Cervical Spine CT 10/15/16 04:49 IMPRESSION: No acute abnormality of the cervical spine. D/ / Kuldeep Jasmine MD / Kuldeep Jasmine MD Interpreting Provider: Kuldeep Jasmine MD Head CT 10/15/16 04:49 IMPRESSION: Diffuse cerebral edema likely cardiogenic in nature. No significant uncal herniation is identified. D/ / 10/15/2016 07:54:55 [facility] Interpreting Provider: Kuldeep Jasmine MD ASSESSMENT/PLAN: Cardiopulmonary Arrest: Mr. Rahman presented with arrest which does not appear to be secondary to a primary cardiac etiology. I reviewed his ECGs which demonstrate nonspecific ST findings. They do not demonstrate a STEMI or acute findings. I personally reviewed his echo which demonstrates normal LV and RV function. No further cardiac testing appears warranted. I will sign off. Please call with questions.
[2016-10-15] MEDS: 0.9 % Sodium Chloride 1,000 ML IVC SCH (18:16)
[2016-10-15] MEDS: *HR* Metoprolol 5 MG/5 ML VIAL IVP PRN (23:17)
[2016-10-16] MEDS: niCARdipine 20 MG/200 ML MLS IVC SCH ×3 (00:36→17:28)
[2016-10-16] MEDS: EPINEPHrine 1 MG in D5% in Water 250 ML IVC SCH (04:10)
[2016-10-16] MEDS: Lacri-Lube 3.5 GM TUBE BOTH EYES SCH ×5 (04:11→20:39)
[2016-10-16] MEDS: 0.9 % Sodium Chloride 1,000 ML IVC SCH ×3 (04:11→20:40)
[2016-10-16 04:43] LABS: Basophils % 0.6 %; Hemoglobin 16.1 g/dL (12.9-16.9)
[2016-10-16 04:44] LABS: Hematocrit 47.9 % (37.5-50.1); Lymphocytes # 0.2 K/mcL (0.6-4.6); Lymphocytes % 12.4 %; Mean Corpuscular HGB Conc 33.6 g/dL (31.6-35.5); Mean Corpuscular Hemoglobin 28.1 pg (28.0-33.3); Mean Corpuscular Volume 83.6 fL (83.0-100.0); Mean Platelet Volume 9.6 fL (9.4-12.4); Monocytes # 0.1 K/mcL (0.0-1.3); Monocytes % 6.5 %; Neutrophils # 1.4 K/mcL (1.6-8.9); Platelet Count 200 K/mcL (140-400); Red Blood Count 5.73 M/mcL (4.19-5.50); Red Cell Distribution Width 12.8 % (11.5-14.5); Segmented Neutrophils % 80.5 %
[2016-10-16 04:47] LABS: INR 1.1; Prothrombin Time 11.4 Seconds (9.4-12.1)
[2016-10-16 04:54] LABS: Albumin 2.7 g/dL (3.5-5.0); Albumin/Globulin Ratio 0.7 (1.1-2.2); Bilirubin,Direct 0.3 mg/dL (0.0-0.5); Bilirubin,Indirect 0.3 mg/dL (0.0-1.2); Bilirubin,Total 0.6 mg/dL (0.2-1.2); Calcium 8.9 mg/dL (8.6-10.8); Globulin 3.9 g/dL (2.4-3.5); Potassium 4.7 mEq/L (3.5-4.5); Total Protein 6.6 g/dL (6.0-8.3)
[2016-10-16 04:59] LABS: ABG Base Excess -5.1 mEq/L (-2.0 to 3.0); ABG HCO3 21.6 mEQ/L (21-27); ABG Oxygen Saturation 91 % (95-98); ABG PCO2 45 mmHg (35-45); ABG PH 7.29 pH Units (7.32-7.45); ABG PO2 69 mmHg (85-104)
[2016-10-16 05:01] LABS: Blood Gas FiO2 80 %
[2016-10-16 05:09] LABS: Large Platelets Present (Not Present); Platelet Estimate Normal (Normal)
[2016-10-16] MEDS ORDERED: D5% in Water 1,000 ML IVC SCH (05:30)
[2016-10-16] MEDS: *HR* Metoprolol 5 MG/5 ML VIAL IVP PRN ×2 (06:41→13:00)
[2016-10-16] MEDS: Chlorhexidine Rinse 15 ML MOUTHWASH MM SCH ×2 (08:29→20:41)
[2016-10-16] MEDS: *HR* Heparin 5,000 UNIT/ML VIAL SQ SCH ×2 (08:29→18:06)
[2016-10-16] MEDS: Pantoprazole 40 MG VIAL IVP SCH (08:29)
[2016-10-16] MEDS: Sodium Phosphate 30 MMOL in D5% in Water 100 ML IVPB PRN (09:48)
[2016-10-16 13:15] LABS: Platelet Count 205 K/mcL (140-400); Red Cell Distribution Width 13.2 % (11.5-14.5)
[2016-10-16 13:16] LABS: Hematocrit 48.4 % (37.5-50.1); Hemoglobin 16.2 g/dL (12.9-16.9); Mean Corpuscular HGB Conc 33.5 g/dL (31.6-35.5); Mean Corpuscular Hemoglobin 28.1 pg (28.0-33.3); Mean Platelet Volume 9.6 fL (9.4-12.4); Monocytes # 0.1 K/mcL (0.0-1.3); Red Blood Count 5.76 M/mcL (4.19-5.50)
--- NOTE | 2016-10-16 13:21 | Neurology - Consult Note ---
Date of Encounter: 10/15/16 Time of Encounter: 13:17 Assessment and Plan (1) Acute anoxic encephalopathy Status: Acute pt has NO brain stem reflexes on current neurological exam, suspect he has suffered irreversible neurological damage. on the basis of clinical exam. CT scan of head NO bleed, it showing vasogenic edema, that consistent with Hypoxic damage. had EEG ; that did't show any seizure activity, and consistent with severe encephalopathy, with NO reactivity to external stimuli, pattern consist with anoxia. urine drug screen is negative as well. though at this time we dont know the cause of this arrest, but seem like he has suffered severe anoxic damage to his brain. we may do a confirmatory test like APNEA test or BRAIN FLOW STUDIES. based on clinical exam his prognosis is POOR (2) Multi-organ system dysfunction Status: Acute History of Present Illness HPI: Mr. Rahman is a 46 year old male brought in by EMS. currently intubated no sedation, as per staff and records he was found down at a facility [facility] by time squad arrive he was asystolic. CPR was continued He was in VF , defibrillated. later was stabilized and transferred to ICU under hypothermic protocol. patient is intubated. not much history available , since his admission he remains unresponsive, not on sedation, no reflexes noted. Patient initially presented as Zafar Morin without family members. No documented PMH. Past Med Surg Social Fam HX - Past Medical History Medical history: no medical history Psychiatric history: no psych history - Past Surgical History Surgical History: no surgical history - Social History Smoking Status: Unknown if ever smoked Smokeless Tobacco Status: No Alcohol use: unknown Drug use: unknown - Family History Mother Living Status: Still Living Hx Family Endocrine Disorder: Yes (Mother with diabetes) Medications and Allergies Unable To Obtain [Unable to Obtain] 10/16/16 [History] Allergies trazodone Allergy (Verified 01/02/16 11:16) Difficulty Breathing slows breathing All Systems: A 10-system review of systems was performed and is negative for pertinent findings except as documented above in the HPI. Review of Systems: Unable to obtain as patient is in coma and intubated Physical Examination - Vital Signs Vital Signs: Initial Vital Signs Temp Pulse Resp BP Pulse Ox 97.6 F 0 0 0/0 0 L 10/15/16 03:20 10/15/16 03:20 10/15/16 03:20 10/15/16 03:20 10/15/16 03:20 - Constitutional General appearance: other (INTUBATED, NO SEDATION, HEART S1 S 2, LUNG, ON VENT, SKIN : NO DISCOLORATION) - Neurologic Mental Status Examination: coma (NO RESPONSE TO VERBAL OR PAIN, PUPILS ARE DILATED FIXED, CORNEALS NEGATIVE, GAG NEGATIVE, NO BREATHING OVER THE VENT, NO MOVMENT TO DEEP PAIN, NEGATIVE DOLLS EYE.) Results - Laboratory Findings CBC and BMP: 10/16/16 13:05 10/16/16 04:25 Abnormal lab findings: Abnormal lab results WBC 1.7 K/mcL (4.3-11.1) L D 10/16/16 04:25 RBC 5.73 M/mcL (4.19-5.50) H 10/16/16 04:25 Neutrophils # 1.4 K/mcL (1.6-8.9) L 10/16/16 04:25 Lymphocytes # 0.2 K/mcL (0.6-4.6) L 10/16/16 04:25 Large Platelets Present (Not Present) A 10/16/16 04:25 ABG pH 7.29 pH Units (7.32-7.45) L 10/16/16 04:47 ABG pO2 69 mmHg (85-104) L 10/16/16 04:47 ABG O2 Saturation 91 % (95-98) L 10/16/16 04:47 ABG Base Excess -5.1 mEq/L (-2.0 to 3.0) L 10/16/16 04:47 Sodium 148 mEq/L (136-145) H D 10/16/16 04:25 Potassium 4.7 mEq/L (3.5-4.5) H 10/16/16 04:25 Chloride 120 mEq/L (98-109) H 10/16/16 04:25 Creatinine 2.06 mg/dL (0.72-1.25) H 10/16/16 04:25 Est GFR ( Amer) 42 (> 60) L 10/16/16 04:25 Est GFR (Non-Af Amer) 35 (> 60) L 10/16/16 04:25 Glucose 189 mg/dL (70-99) H 10/16/16 04:25 POC Glucose 112 (58-89) H 10/15/16 13:14 Calculated Osmolality 314 (280-300) H 10/16/16 04:25 Phosphorus 1.3 mg/dL (2.3-4.7) L 10/16/16 04:36 AST 180 Units/L (5-34) H 10/16/16 04:25 ALT 211 Units/L (0-55) H 10/16/16 04:25 Creatine Kinase 484 Units/L (30-200) H 10/15/16 06:00 Albumin 2.7 g/dL (3.5-5.0) L 10/16/16 04:25 Globulin 3.9 g/dL (2.4-3.5) H 10/16/16 04:25 Albumin/Globulin Ratio 0.7 (1.1-2.2) L 10/16/16 04:25 Urine Clarity Turbid (Clear) A 10/15/16 06:10 Ur Specific [place] 1.006 (1.010-1.025) L 10/15/16 06:10 Urine Protein 30 mg/dL (Neg-Trace) H 10/15/16 06:10 Urine Glucose (UA) 250 mg/dL (Normal) H 10/15/16 06:10 Urine Blood Moderate (Negative) H 10/15/16 06:10 Urine Microscopic WBC 5-15 per hpf (0-3) H 10/15/16 06:10 Urine Bacteria Many per hpf (None-Few) H 10/15/16 06:10 Digoxin < 0.3 ng/mL (0.8-2.0) L 10/15/16 03:40 Salicylates < 5.0 mg/dL (15-30) L 10/15/16 07:45 Acetaminophen < 1.0 mcg/mL (10-30) L 10/15/16 07:45 - Diagnostic Findings Additional findings: CT scan of the head shows diffuse vasogenic edema no evidence of any bleed or stroke Consult Discharge Plan - Plan Referrals: NO,PCP [Primary Care Provider] -
[2016-10-16 13:50] LABS: Amphetamine Screen,Urine Negative ng/mL (Cutoff=1000); Barbiturate Screen,Urine Negative ng/mL (Cutoff=200); Benzodiazepines Screen,Urine Negative ng/mL (Cutoff=200); Cannabinoid Screen,Urine Negative ng/mL (Cutoff = 50); Cocaine Screen,Urine Negative ng/mL (Cutoff= 300); Opiate Screen,Urine Negative ng/mL (Cutoff=300); Phencyclidine Screen,Urine Negative ng/mL (Cutoff=25)
--- NOTE | 2016-10-16 13:51 | Pulmonology Progress Note ---
<Vik Juarez - Last Filed: 10/16/16 13:48> Date of Encounter: 10/16/16 Time of Encounter: 13:48 Assessment and Plan (1) Cardiopulmonary arrest with successful resuscitation Current Visit: Yes Status: Acute Cause unknown at this time. Cardiology evaluated the patient does not appear to be a cardiac event. Patient has been hemodynamically stable with episodes of hypertension. We will continue supportive measures at this time. The mother has been contacted and she will not be coming. Discussions with her have been difficult as she is extremely emotional regarding the situation. We will continue to keep the family updated regarding the patient's condition. Prognosis is extremely poor. (2) Acute anoxic encephalopathy Current Visit: Yes Status: Acute With extreme slowing on EEG. Was on the hypothermia protocol. Neurology evaluated the patient and at this point all signs point to brain . Still no sign of neurologic function after the patient has been rewarmed. We will perform confirmatory testing with a nuclear med blood flow brain scan. [facility] has been contacted. (3) Acute kidney injury Current Visit: Yes Status: Acute Likely related to hypoperfusion setting in the setting of cardiac arrest as discussed above. Creatinine is slightly worsened today however her urine output remains good. Continue gentle fluid hydration. Patient is a poor candidate for renal replacement therapy. (4) Transaminitis Current Visit: Yes Status: Acute Improved. Likely related to hypoperfusion the setting of cardiac arrest as discussed above. We will check hepatitis panel. We will continue to monitor. (5) DVT prophylaxis Current Visit: Yes Status: Acute Heparin 5000 units subcutaneous every 8 hours. Subjective Principal diagnosis: Cardiac Arrest Interval history: Patient seen and examined at bedside. Patient remains intubated. There are no signs of neurologic function. Patient does not respond to verbal or painful stimuli. Objective PUL Vital signs: Last Vital Signs Temp 97.1 F L 10/16/16 13:00 Pulse 127 10/16/16 13:00 Resp 14 10/16/16 13:00 BP 146/110 10/16/16 13:00 Pulse Ox 96 10/16/16 13:00 General appearance: comatose ENT: oropharynx moist Effort: normal Auscultation: bilateral: clear Cardiovascular: regular rate and rhythm Gastrointestinal: absent bowel sounds, soft, non-tender, non-distended Extremities: no cyanosis, no edema, no clubbing other (No evidence of brainstem function. Reflexes including gag, corneal, pupillary are absent.) Ventilator Settings Ventilator Settings: Ventilator Settings, Last 8 Hours Ventilator Mode VC+ Ventilator Mode VC+ Ventilator Mode VC+ Ventilator Mode VC+ Ventilator Mode VC+ Ventilator Mode VC+ Ventilator Mode VC+ Ventilator Mode VC+ Ventilator Mode VC+ Ventilator Mode VC+ Ventilator Mode VC+ Ventilator Mode VC+ Ventilator Mode VC+ Ventilator Mode VC+ Ventilator Tidal Volume 500 Setting Ventilator Tidal Volume 500 Setting Ventilator Tidal Volume 500 Setting Ventilator Tidal Volume 500 Setting Ventilator Tidal Volume 500 Setting Ventilator Tidal Volume 500 Setting Ventilator Tidal Volume 500 Setting Ventilator Tidal Volume 500 Setting Ventilator Tidal Volume 500 Setting Ventilator Tidal Volume 500 Setting Ventilator Tidal Volume 500 Setting Ventilator Tidal Volume 500 Setting Ventilator Tidal Volume 500 Setting Ventilator Tidal Volume 500 Setting Ventilator Respiratory Rate 14 Setting Ventilator Respiratory Rate 14 Setting Ventilator Respiratory Rate 14 Setting Ventilator Respiratory Rate 14 Setting Ventilator Respiratory Rate 14 Setting Ventilator Respiratory Rate 14 Setting Ventilator Respiratory Rate 14 Setting Ventilator Respiratory Rate 14 Setting Ventilator Respiratory Rate 14 Setting Ventilator Respiratory Rate 14 Setting Ventilator Respiratory Rate 14 Setting Ventilator Respiratory Rate 14 Setting Ventilator Respiratory Rate 14 Setting Ventilator Respiratory Rate 14 Setting Actual Respiratory Rate 14 Actual Respiratory Rate 14 Actual Respiratory Rate 14 Actual Respiratory Rate 14 Actual Respiratory Rate 14 Actual Respiratory Rate 14 Actual Respiratory Rate 14 Actual Respiratory Rate 14 Actual Respiratory Rate 14 Actual Respiratory Rate 14 Actual Respiratory Rate 14 Actual Respiratory Rate 14 Actual Respiratory Rate 14 Actual Respiratory Rate 14 Positive End Expiratory 5 Pressure Positive End Expiratory 5 Pressure Positive End Expiratory 5 Pressure Positive End Expiratory 5 Pressure Positive End Expiratory 5 Pressure Positive End Expiratory 5 Pressure Positive End Expiratory 5 Pressure Positive End Expiratory 5 Pressure Positive End Expiratory 5 Pressure Positive End Expiratory 5 Pressure Positive End Expiratory 5 Pressure Positive End Expiratory 5 Pressure Positive End Expiratory 5 Pressure Positive End Expiratory 5 Pressure Peak Inspiratory Airway 24 Pressure Peak Inspiratory Airway 25 Pressure Peak Inspiratory Airway 26 Pressure Peak Inspiratory Airway 25 Pressure Peak Inspiratory Airway 25 Pressure Peak Inspiratory Airway 25 Pressure Peak Inspiratory Airway 25 Pressure Peak Inspiratory Airway 25 Pressure Peak Inspiratory Airway 25 Pressure Peak Inspiratory Airway 26 Pressure Peak Inspiratory Airway 26 Pressure Peak Inspiratory Airway 26 Pressure Peak Inspiratory Airway 27 Pressure Peak Inspiratory Airway 26 Pressure Results - Laboratory Findings CBC and BMP: 10/16/16 13:05 10/16/16 04:25 ABG ABG pH 7.29 pH Units (7.32-7.45) L 10/16/16 04:47 ABG pCO2 45 mmHg (35-45) 10/16/16 04:47 ABG pO2 69 mmHg (85-104) L 10/16/16 04:47 ABG O2 Saturation 91 % (95-98) L 10/16/16 04:47 PT/INR, D-dimer PT 11.4 Seconds (9.4-12.1) 10/16/16 04:25 Abnormal lab findings: Abnormal lab results WBC 1.7 K/mcL (4.3-11.1) L 10/16/16 13:05 RBC 5.76 M/mcL (4.19-5.50) H 10/16/16 13:05 Neutrophils # 1.4 K/mcL (1.6-8.9) L 10/16/16 04:25 Lymphocytes # 0.2 K/mcL (0.6-4.6) L 10/16/16 04:25 Large Platelets Present (Not Present) A 10/16/16 04:25 ABG pH 7.29 pH Units (7.32-7.45) L 10/16/16 04:47 ABG pO2 69 mmHg (85-104) L 10/16/16 04:47 ABG O2 Saturation 91 % (95-98) L 10/16/16 04:47 ABG Base Excess -5.1 mEq/L (-2.0 to 3.0) L 10/16/16 04:47 Sodium 148 mEq/L (136-145) H D 10/16/16 04:25 Potassium 4.7 mEq/L (3.5-4.5) H 10/16/16 04:25 Chloride 120 mEq/L (98-109) H 10/16/16 04:25 Creatinine 2.06 mg/dL (0.72-1.25) H 10/16/16 04:25 Est GFR ( Amer) 42 (> 60) L 10/16/16 04:25 Est GFR (Non-Af Amer) 35 (> 60) L 10/16/16 04:25 Glucose 189 mg/dL (70-99) H 10/16/16 04:25 POC Glucose 112 (58-89) H 10/15/16 13:14 Calculated Osmolality 314 (280-300) H 10/16/16 04:25 Phosphorus 1.3 mg/dL (2.3-4.7) L 10/16/16 04:36 AST 180 Units/L (5-34) H 10/16/16 04:25 ALT 211 Units/L (0-55) H 10/16/16 04:25 Creatine Kinase 484 Units/L (30-200) H 10/15/16 06:00 Albumin 2.7 g/dL (3.5-5.0) L 10/16/16 04:25 Globulin 3.9 g/dL (2.4-3.5) H 10/16/16 04:25 Albumin/Globulin Ratio 0.7 (1.1-2.2) L 10/16/16 04:25 Urine Clarity Turbid (Clear) A 10/15/16 06:10 Ur Specific [place] 1.006 (1.010-1.025) L 10/15/16 06:10 Urine Protein 30 mg/dL (Neg-Trace) H 10/15/16 06:10 Urine Glucose (UA) 250 mg/dL (Normal) H 10/15/16 06:10 Urine Blood Moderate (Negative) H 10/15/16 06:10 Urine Microscopic WBC 5-15 per hpf (0-3) H 10/15/16 06:10 Urine Bacteria Many per hpf (None-Few) H 10/15/16 06:10 Digoxin < 0.3 ng/mL (0.8-2.0) L 10/15/16 03:40 Salicylates < 5.0 mg/dL (15-30) L 10/15/16 07:45 Acetaminophen < 1.0 mcg/mL (10-30) L 10/15/16 07:45 - Clinical Findings Intake & Output: Intake & Output 10/15/16 10/16/16 10/16/16 23:59 07:59 15:59 Intake Total 1087 / 1087 100 / 100 520 / 520 Output Total 1400 / 1400 4100 / 4100 1300 / 1300 Balance -313 / -313 -4000 / -4000 -780 / -780 - VTE Documentation of Mechanical Device: Intermittent pneumatic compression device Consult Discharge Plan - Plan Referrals: NO,PCP [Primary Care Provider] - <Jerrod Fitch - Last Filed: 10/16/16 14:44> Objective PUL Vital signs: Last Vital Signs Temp 97.2 F L 10/16/16 14:00 Pulse 106 10/16/16 14:00 Resp 14 10/16/16 14:00 BP 122/87 10/16/16 14:00 Pulse Ox 96 10/16/16 14:00 Ventilator Settings Ventilator Settings: Ventilator Settings, Last 8 Hours Ventilator Mode VC+ Ventilator Mode VC+ Ventilator Mode VC+ Ventilator Mode VC+ Ventilator Mode VC+ Ventilator Mode VC+ Ventilator Mode VC+ Ventilator Mode VC+ Ventilator Mode VC+ Ventilator Mode VC+ Ventilator Mode VC+ Ventilator Mode VC+ Ventilator Mode VC+ Ventilator Tidal Volume 500 Setting Ventilator Tidal Volume 500 Setting Ventilator Tidal Volume 500 Setting Ventilator Tidal Volume 500 Setting Ventilator Tidal Volume 500 Setting Ventilator Tidal Volume 500 Setting Ventilator Tidal Volume 500 Setting Ventilator Tidal Volume 500 Setting Ventilator Tidal Volume 500 Setting Ventilator Tidal Volume 500 Setting Ventilator Tidal Volume 500 Setting Ventilator Tidal Volume 500 Setting Ventilator Tidal Volume 500 Setting Ventilator Respiratory Rate 14 Setting Ventilator Respiratory Rate 14 Setting Ventilator Respiratory Rate 14 Setting Ventilator Respiratory Rate 14 Setting Ventilator Respiratory Rate 14 Setting Ventilator Respiratory Rate 14 Setting Ventilator Respiratory Rate 14 Setting Ventilator Respiratory Rate 14 Setting Ventilator Respiratory Rate 14 Setting Ventilator Respiratory Rate 14 Setting Ventilator Respiratory Rate 14 Setting Ventilator Respiratory Rate 14 Setting Ventilator Respiratory Rate 14 Setting Actual Respiratory Rate 14 Actual Respiratory Rate 14 Actual Respiratory Rate 14 Actual Respiratory Rate 14 Actual Respiratory Rate 14 Actual Respiratory Rate 14 Actual Respiratory Rate 14 Actual Respiratory Rate 14 Actual Respiratory Rate 14 Actual Respiratory Rate 14 Actual Respiratory Rate 14 Actual Respiratory Rate 14 Actual Respiratory Rate 14 Positive End Expiratory 5 Pressure Positive End Expiratory 5 Pressure Positive End Expiratory 5 Pressure Positive End Expiratory 5 Pressure Positive End Expiratory 5 Pressure Positive End Expiratory 5 Pressure Positive End Expiratory 5 Pressure Positive End Expiratory 5 Pressure Positive End Expiratory 5 Pressure Positive End Expiratory 5 Pressure Positive End Expiratory 5 Pressure Positive End Expiratory 5 Pressure Positive End Expiratory 5 Pressure Peak Inspiratory Airway 24 Pressure Peak Inspiratory Airway 27 Pressure Peak Inspiratory Airway 24 Pressure Peak Inspiratory Airway 25 Pressure Peak Inspiratory Airway 26 Pressure Peak Inspiratory Airway 25 Pressure Peak Inspiratory Airway 25 Pressure Peak Inspiratory Airway 25 Pressure Peak Inspiratory Airway 25 Pressure Peak Inspiratory Airway 25 Pressure Peak Inspiratory Airway 25 Pressure Peak Inspiratory Airway 26 Pressure Peak Inspiratory Airway 26 Pressure Results - Laboratory Findings CBC and BMP: 10/16/16 13:05 10/16/16 04:25 ABG ABG pH 7.29 pH Units (7.32-7.45) L 10/16/16 04:47 ABG pCO2 45 mmHg (35-45) 10/16/16 04:47 ABG pO2 69 mmHg (85-104) L 10/16/16 04:47 ABG O2 Saturation 91 % (95-98) L 10/16/16 04:47 PT/INR, D-dimer PT 11.4 Seconds (9.4-12.1) 10/16/16 04:25 Abnormal lab findings: Abnormal lab results WBC 1.7 K/mcL (4.3-11.1) L 10/16/16 13:05 RBC 5.76 M/mcL (4.19-5.50) H 10/16/16 13:05 Neutrophils # 1.4 K/mcL (1.6-8.9) L 10/16/16 04:25 Lymphocytes # 0.2 K/mcL (0.6-4.6) L 10/16/16 04:25 Large Platelets Present (Not Present) A 10/16/16 04:25 ABG pH 7.29 pH Units (7.32-7.45) L 10/16/16 04:47 ABG pO2 69 mmHg (85-104) L 10/16/16 04:47 ABG O2 Saturation 91 % (95-98) L 10/16/16 04:47 ABG Base Excess -5.1 mEq/L (-2.0 to 3.0) L 10/16/16 04:47 Sodium 148 mEq/L (136-145) H D 10/16/16 04:25 Potassium 4.7 mEq/L (3.5-4.5) H 10/16/16 04:25 Chloride 120 mEq/L (98-109) H 10/16/16 04:25 Creatinine 2.06 mg/dL (0.72-1.25) H 10/16/16 04:25 Est GFR ( Amer) 42 (> 60) L 10/16/16 04:25 Est GFR (Non-Af Amer) 35 (> 60) L 10/16/16 04:25 Glucose 189 mg/dL (70-99) H 10/16/16 04:25 POC Glucose 112 (58-89) H 10/15/16 13:14 Calculated Osmolality 314 (280-300) H 10/16/16 04:25 Phosphorus 1.3 mg/dL (2.3-4.7) L 10/16/16 04:36 AST 180 Units/L (5-34) H 10/16/16 04:25 ALT 211 Units/L (0-55) H 10/16/16 04:25 Creatine Kinase 484 Units/L (30-200) H 10/15/16 06:00 Albumin 2.7 g/dL (3.5-5.0) L 10/16/16 04:25 Globulin 3.9 g/dL (2.4-3.5) H 10/16/16 04:25 Albumin/Globulin Ratio 0.7 (1.1-2.2) L 10/16/16 04:25 Urine Clarity Turbid (Clear) A 10/15/16 06:10 Ur Specific [place] 1.006 (1.010-1.025) L 10/15/16 06:10 Urine Protein 30 mg/dL (Neg-Trace) H 10/15/16 06:10 Urine Glucose (UA) 250 mg/dL (Normal) H 10/15/16 06:10 Urine Blood Moderate (Negative) H 10/15/16 06:10 Urine Microscopic WBC 5-15 per hpf (0-3) H 10/15/16 06:10 Urine Bacteria Many per hpf (None-Few) H 10/15/16 06:10 Digoxin < 0.3 ng/mL (0.8-2.0) L 10/15/16 03:40 Salicylates < 5.0 mg/dL (15-30) L 10/15/16 07:45 Acetaminophen < 1.0 mcg/mL (10-30) L 10/15/16 07:45 - Clinical Findings Intake & Output: Intake & Output 10/15/16 10/16/16 10/16/16 23:59 07:59 15:59 Intake Total 1087 / 1087 100 / 100 520 / 520 Output Total 1400 / 1400 4100 / 4100 1300 / 1300 Balance -313 / -313 -4000 / -4000 -780 / -780 - Attending Attestation I examined this patient and my medical decision-making was reviewed with the ANIMAL [employer]UELTY INVESTIGATION SUPERVISOR/PA/Advanced Practice Nurse/Resident Physician. I agree with the documented findings, disposition and treatment plan as described except to the extent set forth below. Patient seen and examined. Labs, radiology, chart personally reviewed. Agree with resident's history and physical, assessment, plan with following comments: CHILD CARE ATTENDANT: Patient has no evidence of brain stem activity and clinically suspect brain , but need to wait until his temp is normal, > 36 C and neurology input is appreciated (no reflexes), Pulmonary: Acceptable oxygenation and ventilation. Suspect patient has underlying COPD and I don't feel apnea test will be reliable to confirm brain . Wean off FIO2 and patient is not breathing over the vent. Patient is apnic when tried on SBT. Cardiovascular: stable GI: Nutrition per dietary and GI prophylaxis per routine. NPO for now Heme: DVT prophylaxis per routine ID: No evidence of infection, check for hepatitis because liver enzymes is elevated Renal; urine out put and renal funtion reviewed Endorcine: blood glucose is monitored Lines: all lines checked and no evidence of infections Skin: skin care to prevent pressure ulcers per nursing routine care Family is not available and follow up with [facility]. I spent 35 min of Critical Care time with this patient. It involved decision making of high complexity to assess, manipulate, and support vital organ system failure and/or to prevent further life threatening deterioration of the patient' s condition. The time involved in the performance of separately reportable procedures was not counted toward critical care time.
[2016-10-16 14:49] LABS: Lymphocytes # 0.3 K/mcL (0.6-4.6); Neutrophils # 1.2 K/mcL (1.6-8.9); Platelet Estimate Normal (Normal)
--- NOTE | 2016-10-16 17:14 | Neurology Progress Note ---
Date of Encounter: 10/16/16 Time of Encounter: 17:05 Assessment and Plan (1) Brain Current Visit: Yes Status: Acute on examination NO BRAIN STEM REFLEXES, NUCLEAR STUDIES confirm NO flow to brain consistent with Brain . pt has no change in his neurological status in more than 36 hours, There is no change in his brain stem reflexes on today's neurological examination. He does meet the criteria for brain . [facility] brain that protocol was followed and completed. Discussed with the ICU team (2) Acute anoxic encephalopathy Current Visit: Yes Status: Acute (3) Multi-organ system dysfunction Current Visit: Yes Status: Acute Subjective Principal diagnosis: Cardiac Arrest Interval history: pt reaxamined, no change, in after 36 hours of initial presentation. no change is overall status. In the meantime he remained intubated he has shown no changes in his overall condition CT scan of the head did shows evidence of vasogenic edema. Repeat urine tox was negative. EEG did not demonstrate any seizure activity consistent with severe encephalopathy. Blood pressure is is stable some fluctuation getting hypertensive at times he has been rewarmed and current temperature is 36.0. Objective - Constitutional Vitals: Temp Pulse Resp BP Pulse Ox 96.2 F L 100 14 99/70 94 L 10/16/16 15:00 10/16/16 15:00 10/16/16 16:36 10/16/16 15:00 10/16/16 16:36 - Neurological Exam Mental Status Examination: Present: coma (NO RESPONSE TO VERBAL OR PAIN, PUPILS ARE DILATED FIXED, CORNEALS NEGATIVE, GAG NEGATIVE, NO BREATHING OVER THE VENT, NO MOVMENT TO DEEP PAIN, NEGATIVE DOLLS EYE.) - Other Additional findings: Neurological examination Is no evidence of any pupillary reflexes , fixed and dilated. Corneals are negative No gag reflex No breathing over the ventilator. No response to any deep pain Oculocephalic reflexes were negative COLD CALORIC PERFORMED AT bedside per protocols, NO response, consistent with NO brain stem reflexes - VTE Documentation of Mechanical Device: Intermittent pneumatic compression device Results - Laboratory Findings CBC and BMP: 10/16/16 13:05 10/16/16 04:25 Abnormal lab findings: Abnormal lab results WBC 1.7 K/mcL (4.3-11.1) L 10/16/16 13:05 RBC 5.76 M/mcL (4.19-5.50) H 10/16/16 13:05 Band Neutrophils % 20.0 % (0-4) H 10/16/16 13:05 Neutrophils # 1.2 K/mcL (1.6-8.9) L 10/16/16 13:05 Lymphocytes # 0.3 K/mcL (0.6-4.6) L 10/16/16 13:05 Large Platelets Present (Not Present) A 10/16/16 04:25 ABG pH 7.29 pH Units (7.32-7.45) L 10/16/16 04:47 ABG pO2 69 mmHg (85-104) L 10/16/16 04:47 ABG O2 Saturation 91 % (95-98) L 10/16/16 04:47 ABG Base Excess -5.1 mEq/L (-2.0 to 3.0) L 10/16/16 04:47 Sodium 148 mEq/L (136-145) H D 10/16/16 04:25 Potassium 4.7 mEq/L (3.5-4.5) H 10/16/16 04:25 Chloride 120 mEq/L (98-109) H 10/16/16 04:25 Creatinine 2.06 mg/dL (0.72-1.25) H 10/16/16 04:25 Est GFR ( Amer) 42 (> 60) L 10/16/16 04:25 Est GFR (Non-Af Amer) 35 (> 60) L 10/16/16 04:25 Glucose 189 mg/dL (70-99) H 10/16/16 04:25 POC Glucose 112 (58-89) H 10/15/16 13:14 Calculated Osmolality 314 (280-300) H 10/16/16 04:25 Phosphorus 1.3 mg/dL (2.3-4.7) L 10/16/16 04:36 AST 180 Units/L (5-34) H 10/16/16 04:25 ALT 211 Units/L (0-55) H 10/16/16 04:25 Creatine Kinase 484 Units/L (30-200) H 10/15/16 06:00 Albumin 2.7 g/dL (3.5-5.0) L 10/16/16 04:25 Globulin 3.9 g/dL (2.4-3.5) H 10/16/16 04:25 Albumin/Globulin Ratio 0.7 (1.1-2.2) L 10/16/16 04:25 Urine Clarity Turbid (Clear) A 10/15/16 06:10 Ur Specific [place] 1.006 (1.010-1.025) L 10/15/16 06:10 Urine Protein 30 mg/dL (Neg-Trace) H 10/15/16 06:10 Urine Glucose (UA) 250 mg/dL (Normal) H 10/15/16 06:10 Urine Blood Moderate (Negative) H 10/15/16 06:10 Urine Microscopic WBC 5-15 per hpf (0-3) H 10/15/16 06:10 Urine Bacteria Many per hpf (None-Few) H 10/15/16 06:10 Digoxin < 0.3 ng/mL (0.8-2.0) L 10/15/16 03:40 Salicylates < 5.0 mg/dL (15-30) L 10/15/16 07:45 Acetaminophen < 1.0 mcg/mL (10-30) L 10/15/16 07:45 Consult Discharge Plan - Plan Referrals: NO,PCP [Primary Care Provider] -
--- NOTE | 2016-10-16 17:22 | Event Note ---
<Vik Juarez G - Last Filed: 10/16/16 17:22> Date of Encounter: 10/16/16 Time of Encounter: 17:16 Dr. Gabriel, neurology, at bedside to evaluate the patient. Reflex testing was performed including corneal, gag, noxious stimuli, pupillary light, oculocephalic, oculovestibular which showed no brain activity. The ventilator was switched to spontaneous mode and no spontaneous respirations were observed. A nuclear medicine brain blood flow scan was performed which showed no cerebral blood flow consistent with brain . Apnea testing was not performed due to likely underlying COPD. Given all of the factors listed above brain was declared at 1700. Loop coordinator is on site for possible organ procurement. <Jerrod Fitch M - Last Filed: 10/16/16 19:04> Agree with neurology assessment. Poor prognosis. Hoping patient will be candidate for organ donation.
[2016-10-16] MEDS: Norepinephrine 4 MG in D5% in Water 250 ML IV SCH (18:59)
[2016-10-16 22:10] VITALS: BP 97/63
--- NOTE | 2016-10-17 10:02 | Death Note ---
<JosephVik booker Silvino - Last Filed: 10/17/16 09:59> Discharge Sum: Summary - Date and Time Date of admission: 10/15/16 05:05 Date of : 10/16/16 Time of : 17:00 - Summary Details: Patient is a 46-year-old male with history of hepatitis C and drug use who presented status post cardiac arrest. The events preceding his cardiac arrest are unclear at this time. Patient was transferred to the hospital via EMS in full cardiac arrest. Patient had spontaneous return of circulation and then lost pulse 3 times in the emergency department. Eventually he was stabilized from a hemodynamic standpoint. Patient was then transferred to the ICU and the hypothermia protocol was initiated. Patient was cooled for approximately 24 hours and then rewarmed. Once the patient was rewarmed he was evaluated for brainstem function by the critical care physician and the neurologist. Independent determinations were made that due to lack of primitive reflexes including pupillary, corneal, gag, oculovestibular, respiratory drive, as well as imaging including EEG and nuclear medicine brain vascular flow scan, brain was present. With the neurologist and ICU team present brain was called at 1700. Family was notified. [facility] is on site evaluating the patient for possible organ donation and they will assume care of the patient at this time. 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 primative reflexes, confirmed by a neurologist) Family: contacted Additional persons at bedside: other ([facility]) Attending/PCP notified?: Yes Attending physician: Jerrod Fitch MD Was code activated?: No Autopsy requested?: No patents examiner notified?: Yes Organ bank notified?: Yes ([facility] on site evaluating for organ donation) Advance directives: No Hospice patient?: No Discharge Sum: Diag - PCOD Probable Cause of : Cardiac arrest Discharge Sum: Prov - Provider Primary care physician: PCP NO Admitting clinician: Derrek Quintana Consults: 10/15/16 05:37 Consult to Nutrition [CONS] Routine Comment: Consulting Provider: NUTRITION Reason for Dietary Consult: TF Start and Manage 10/15/16 05:38 Consult to Cardiac Rehabilitation-Phase1 [CONS] Routine Comment: Reason for Consult: AMI Call Completed: Yes Consult to Nurse Navigator [CONS] Routine Comment: 10/15/16 07:00 Consult to Physician [CONS] Routine Consulting Provider: Jerrod Fitch Reason for Consult: Zafar Morin status post cardiopulmonary arrest. Ventilator dependent respiratory failure and vasopressor dependent hypovolemic cardiogenic shock. Please evaluate and advise. Time Notified: 05:43 Call Completed: No 10/15/16 08:00 Consult to Cardiology [CONS] Routine Comment: Consulting Provider: Augustin Ji Reason for Consult: Zafar Morin status post cardiopulmonary arrest. Pedal dependent respiratory failure and vasopressor dependent hypovolemic-cardiogenic shock. Please evaluate and advise. Time Notified: 05:46 Call Completed: No 10/15/16 11:45 Consult to Interpret Exam [CONS] Routine Consulting Provider: Son Gabriel I Consult to Interpret Exam: Interpret EEG 10/16/16 09:08 Consult to Neurology [CONS] Routine Consulting Provider: [facility] Reason for Consult: Brain Call Completed: Yes Pronouncing clinician: Vik Juarez <Jerrod Fitch - Last Filed: 10/17/16 10:20> Discharge Sum: Summary - Date and Time Date of admission: 10/15/16 05:05 - Additional Data Attending physician: Lesly Clement MD Discharge Sum: Prov - Provider Primary care physician: PCP NO Consults: 10/15/16 05:37 Consult to Nutrition [CONS] Routine Comment: Consulting Provider: NUTRITION Reason for Dietary Consult: TF Start and Manage 10/15/16 05:38 Consult to Cardiac Rehabilitation-Phase1 [CONS] Routine Comment: Reason for Consult: AMI Call Completed: Yes Consult to Nurse Navigator [CONS] Routine Comment: 10/15/16 07:00 Consult to Physician [CONS] Routine Consulting Provider: Jerrod Fitch Reason for Consult: Zafar Morin status post cardiopulmonary arrest. Ventilator dependent respiratory failure and vasopressor dependent hypovolemic cardiogenic shock. Please evaluate and advise. Time Notified: 05:43 Call Completed: No 10/15/16 08:00 Consult to Cardiology [CONS] Routine Comment: Consulting Provider: Augustin Ji Reason for Consult: Zafar Morin status post cardiopulmonary arrest. Pedal dependent respiratory failure and vasopressor dependent hypovolemic-cardiogenic shock. Please evaluate and advise. Time Notified: 05:46 Call Completed: No 10/15/16 11:45 Consult to Interpret Exam [CONS] Routine Consulting Provider: Son Gabriel I Consult to Interpret Exam: Interpret EEG 10/16/16 09:08 Consult to Neurology [CONS] Routine Consulting Provider: [facility] Reason for Consult: Brain Call Completed: Yes - Attending Attestation I examined this patient and my medical decision-making was reviewed with the CNC SERVICE TECHNICIAN/PA/Advanced Practice Nurse/Resident Physician. I agree with the documented findings, disposition and treatment plan as described except to the extent set forth below. Patient had cardiac arrest, which clinically and from the history most likely related to illicit drug over dose. I have spoke to his mother and patient was declared brain . He was discharged and [facility] team took over.
--- NOTE | 2016-10-18 13:45 | Electrocardiograph Report ---
[facility] Test Date: 2016-10-17 Pat Name: Benoit Rahman Department: 109 Room: 06 Gender: M [employer] Striker: GUADALU[place] : 1970 Requested By: Derrek Quintana Order Number: [id number] Reading MD: Domingo Sharpe DO Measurements Intervals Cameron Rate: 83 P: -20 DE: 141 QRS: 1 QRSD: 98 T: -10 QT: 440 QTc: 479 Interpretive Statements Sinus rhythm Prolonged QT interval Inferior T wave changes possibly due to ischemia Electronically Signed On 10-18-16 13:44:31 EST by Domingo Sharpe DO
== END 2016-10-16 22:19 | disposition other institution (70) | DRG 812 ==
LOC: EMEROO 03:17 → EDBD 05:05 → ICNU 05:05 → MERGE 05:05 → ICNU 05:50
PROVIDERS: ADMIT Internal Medicine; ATTEND Internal Medicine

== ENCOUNTER 2016-10-16 22:20 | Inpatient (IN) ==
[2016-10-16] MEDS ORDERED: D5% in 0.45% NACL w KCl 20 MEQ/1,000 ML MLS IVC SCH (23:45)
[2016-10-16] MEDS ORDERED: *HR* Dextrose 50 % in Water (Syg) 50 ML SYRINGE IVP PRN (23:55)
[2016-10-16] MEDS ORDERED: Insulin Human Regular 20 UNIT in 0.9 % Sodium Chloride 10 ML IV PRN (23:55)
[2016-10-17] MEDS ORDERED: 0.9 % Sodium Chloride 500 ML ONE (00:03)
[2016-10-17 00:04] LABS: Hematocrit 42.2 % (37.5-50.1); Hemoglobin 13.6 g/dL (12.9-16.9); Lymphocytes # 0.5 K/mcL (0.6-4.6); Mean Corpuscular HGB Conc 32.2 g/dL (31.6-35.5); Mean Corpuscular Hemoglobin 27.5 pg (28.0-33.3); Mean Corpuscular Volume 85.4 fL (83.0-100.0); Mean Platelet Volume 9.5 fL (9.4-12.4); Monocytes # 0.1 K/mcL (0.0-1.3); Platelet Count 177 K/mcL (140-400); Red Blood Count 4.94 M/mcL (4.19-5.50); Red Cell Distribution Width 13.4 % (11.5-14.5)
[2016-10-17 00:09] LABS: INR 1.5; Prothrombin Time 15.9 Seconds (9.4-12.1)
[2016-10-17 00:10] LABS: Bilirubin,Urine Negative (Negative); Blood,Urine Negative (Negative); Clarity,Urine Cloudy (Clear); Color,Urine Yellow (Yellow); Glucose,Urine (UA) Normal (Normal); Ketones,Urine Negative (Negative); Leukocyte Esterase,Urine Negative (Negative); Nitrite,Urine Negative (Negative); PH,Urine 5.5 pH Units (5.0-8.0); Protein,Urine Negative (Neg-Trace); Urobilinogen,Urine Normal (Normal)
[2016-10-17 00:11] LABS: Bacteria,Urine None Seen per hpf (None-Few); Hyaline Casts,Urine None Seen per lpf (None-Few); Squamous Epithelial Cell,Urine Many per lpf (None-Few)
[2016-10-17 00:12] LABS: Activated Partial Thrombo Time 37.9 Seconds (26.0-36.0)
[2016-10-17 00:16] LABS: Ionized Calcium 1.15 mmol/L (1.15-1.35)
[2016-10-17] MEDS: Piperacillin/Tazobactam 3.375 GM in D5% in Water (Mini-Bag+) 100 ML IVPB SCH ×4 (00:19→17:38)
[2016-10-17 00:25] LABS: Albumin 2.2 g/dL (3.5-5.0); Albumin/Globulin Ratio 0.6 (1.1-2.2); Amylase 186 Units/L (25-125); Bilirubin,Direct 0.3 mg/dL (0.0-0.5); Bilirubin,Indirect 0.2 mg/dL (0.0-1.2); Bilirubin,Total 0.5 mg/dL (0.2-1.2); Calcium 8.5 mg/dL (8.6-10.8); Cholesterol 104 mg/dL (< 200); Globulin 3.4 g/dL (2.4-3.5); Lipase 10 Units/L (8-78); Magnesium 2.2 mg/dL (1.6-2.6); Potassium 4.6 mEq/L (3.5-4.5); Total Protein 5.6 g/dL (6.0-8.3)
[2016-10-17 00:26] LABS: Lactate Dehydrogenase 404 Units/L (159-327)
[2016-10-17 00:33] LABS: Large Platelets Present (Not Present); Neutrophils # 2.6 K/mcL (1.6-8.9); Platelet Estimate Normal (Normal)
[2016-10-17 00:34] LABS: Anisocytosis 1+ (Not Present); Tear Drop Cells 1+ (Not Present)
[2016-10-17 01:38] LABS: ABG Base Excess -0.9 mEq/L (-2.0 to 3.0); ABG HCO3 25.8 mEQ/L (21-27); ABG Oxygen Saturation 100 % (95-98); ABG PCO2 50 mmHg (35-45); ABG PH 7.32 pH Units (7.32-7.45); ABG PO2 315 mmHg (85-104); ABG TCO2 27.3 mEq/L (20-26)
[2016-10-17 01:39] LABS: Blood Gas FiO2 100 %
[2016-10-17] MEDS: SODIUM CHLORIDE 0.9% IV SCH ×3 (02:00→23:51)
[2016-10-17] MEDS: LEVOTHYROXINE SODIUM IV SCH ×3 (02:00→23:51)
[2016-10-17 04:03] LABS: ABG Base Excess -4.5 mEq/L (-2.0 to 3.0); ABG HCO3 22.1 mEQ/L (21-27); ABG Oxygen Saturation 99 % (95-98); ABG PCO2 46 mmHg (35-45); ABG PH 7.29 pH Units (7.32-7.45); ABG PO2 137 mmHg (85-104); ABG TCO2 23.5 mEq/L (20-26)
[2016-10-17 04:04] LABS: Blood Gas FiO2 100 %
[2016-10-17 04:13] LABS: Calcium 8.5 mg/dL (8.6-10.8); Magnesium 2.2 mg/dL (1.6-2.6)
[2016-10-17 04:18] LABS: Ionized Calcium 1.21 mmol/L (1.15-1.35); Phosphorous 2.2 mg/dL (2.3-4.7); Potassium 3.3 mEq/L (3.5-4.5)
[2016-10-17] MEDS: Norepinephrine 4 MG in D5% in Water 250 ML IVC SCH (05:23)
[2016-10-17] MEDS: Potassium Chloride 40 MEQ/200 ML BAG IVPB PRN (05:24)
[2016-10-17] MEDS ORDERED: POTASSIUM PHOSPHATE IVPB ONE (05:27)
[2016-10-17] MEDS ORDERED: SODIUM CHLORIDE 0.9% IVPB ONE (05:27)
[2016-10-17 06:03] LABS: ABG Base Excess -2.2 mEq/L (-2.0 to 3.0); ABG HCO3 24.6 mEQ/L (21-27); ABG Oxygen Saturation 99 % (95-98); ABG PCO2 50 mmHg (35-45); ABG PO2 141 mmHg (85-104); ABG TCO2 26.1 mEq/L (20-26)
[2016-10-17 06:05] LABS: Blood Gas FiO2 60 %
[2016-10-17] MEDS: Vasopressin 40 UNIT in D5% in Water 100 ML IV SCH (06:07)
[2016-10-17] MEDS: D5% in 0.2% NACL w KCl 1,000 ML IVC SCH ×2 (06:08→16:08)
[2016-10-17 08:09] LABS: ABG HCO3 21.9 mEQ/L (21-27); ABG PCO2 40 mmHg (35-45); ABG PH 7.34 pH Units (7.32-7.45); ABG PO2 139 mmHg (85-104); ABG TCO2 22.8 mEq/L (20-26); Blood Gas FiO2 60 %
[2016-10-17 08:10] LABS: ABG Base Excess -3.9 mEq/L (-2.0 to 3.0); ABG Oxygen Saturation 99 % (95-98)
[2016-10-17 08:13] LABS: Ionized Calcium 1.14 mmol/L (1.15-1.35)
[2016-10-17 08:15] LABS: INR 1.6; Prothrombin Time 17.6 Seconds (9.4-12.1)
[2016-10-17 08:17] LABS: Activated Partial Thrombo Time 33.1 Seconds (26.0-36.0)
[2016-10-17 08:18] LABS: Hematocrit 36.4 % (37.5-50.1); Lymphocytes # 0.3 K/mcL (0.6-4.6); Mean Corpuscular HGB Conc 32.4 g/dL (31.6-35.5); Mean Corpuscular Hemoglobin 27.8 pg (28.0-33.3); Mean Corpuscular Volume 85.6 fL (83.0-100.0); Mean Platelet Volume 9.8 fL (9.4-12.4); Platelet Count 167 K/mcL (140-400); Red Blood Count 4.25 M/mcL (4.19-5.50); Red Cell Distribution Width 13.6 % (11.5-14.5)
[2016-10-17 08:23] LABS: Hemoglobin 11.8 g/dL (12.9-16.9)
[2016-10-17] MEDS: Furosemide 20 MG/2 ML VIAL IVP SCH (08:41)
[2016-10-17 08:56] LABS: Neutrophils # 1.5 K/mcL (1.6-8.9)
[2016-10-17 08:57] LABS: Platelet Estimate Normal (Normal)
[2016-10-17 09:18] LABS: Albumin 2.4 g/dL (3.5-5.0); Albumin/Globulin Ratio 0.8 (1.1-2.2); Bilirubin,Direct 0.5 mg/dL (0.0-0.5); Bilirubin,Indirect 0.4 mg/dL (0.0-1.2); Calcium 8.5 mg/dL (8.6-10.8); Globulin 3.1 g/dL (2.4-3.5); Phosphorous 2.1 mg/dL (2.3-4.7); Potassium 4.3 mEq/L (3.5-4.5); Total Protein 5.5 g/dL (6.0-8.3)
[2016-10-17 09:19] LABS: Bilirubin,Total 0.9 mg/dL (0.2-1.2)
[2016-10-17] MEDS ORDERED: Calcium Chloride 1,000 MG in 0.9 % Sodium Chloride 100 ML IVPB ONE (09:42)
--- NOTE | 2016-10-17 09:44 | Procedure Note ---
<Vik Juarez - Last Filed: 10/17/16 09:39> Date of procedure: 10/17/16 Pre-op diagnosis: Brain /Possible organ donation Post-op diagnosis: same Procedure: Patient required a central venous catheter above the waist for organ procurement reasons. Consent was obtained through the [facility] organ donation consent. The right internal jugular vein was surveyed using ultrasound and found a suitable target for CVC placement. The patient was placed in the Trendelenburg position. The patient was cleaned and draped in usual sterile fashion. Under ultrasound guidance the introducer needle was introduced into the right internal jugular vein. Dark red, nonpulsatile blood flow was returned. The guidewire was advanced through the introducer needle without resistance. The needle was removed. The guidewire was confirmed to be in the internal jugular vein using ultrasound. A sebastian in the skin was made using a scalpel, and the dilator was passed over the wire and soft tissues were dilated. The catheter was then advanced over the guidewire and into the internal jugular vein without difficulty. All 3 ports were tested and found to draw blood and flushed easily. The line was then sutured in place. Biopatch and sterile dressing were applied. Chest x-ray for confirmation of placement is pending. There were no immediate complications. The attending physician, Dr. Fitch, was present and supervised the entire procedure. Surgeon: Vik Juarez Estimated blood loss (cc): 5 IV fluids (cc): 15 Pathology: none sent Condition: critical Disposition: ICU <Jerrod Fitch - Last Filed: 10/17/16 09:59> Procedure: I have personally supervised Dr. Juarez placing central line.
[2016-10-17] MEDS ORDERED: Heparin 1,000 UNITS/500 mL NS 500 ML ONE (10:32)
[2016-10-17 11:33] LABS: ABG PH 7.26 pH Units (7.32-7.45); Blood Gas FiO2 60 %
[2016-10-17 11:34] LABS: ABG Base Excess -7.1 mEq/L (-2.0 to 3.0); ABG HCO3 19.4 mEQ/L (21-27); ABG Oxygen Saturation 98 % (95-98); ABG PCO2 44 mmHg (35-45); ABG PO2 110 mmHg (85-104); ABG TCO2 21.1 mEq/L (20-26)
[2016-10-17 11:46] LABS: Ionized Calcium 1.27 mmol/L (1.15-1.35)
[2016-10-17 11:53] LABS: Calcium 9.3 mg/dL (8.6-10.8); Magnesium 1.8 mg/dL (1.6-2.6); Potassium 3.9 mEq/L (3.5-4.5)
[2016-10-17] MEDS ORDERED: Magnesium Sulfate 2 GM in D5% in Water 100 ML IVPB ONE (12:52)
[2016-10-17] MEDS ORDERED: Mannitol 25% vial 12.5 GM/50 ML VIAL IVPB ONE (14:40)
[2016-10-17] MEDS ORDERED: Insulin LISPRO 300 UNITS/3 ML VIAL SQ ONE (15:38)
[2016-10-17] MEDS ORDERED: Insulin Human Regular 20 UNIT in 0.9 % Sodium Chloride 10 ML IV ONE (15:42)
[2016-10-17 16:27] LABS: ABG Base Excess -6.3 mEq/L (-2.0 to 3.0); ABG HCO3 20.1 mEQ/L (21-27); ABG Oxygen Saturation 99 % (95-98); ABG PCO2 36 mmHg (35-45); ABG PH 7.33 pH Units (7.32-7.45); ABG PO2 144 mmHg (85-104); ABG TCO2 20.1 mEq/L (20-26); Blood Gas FiO2 60 %
[2016-10-17 16:29] LABS: Hematocrit 32.5 % (37.5-50.1); Hemoglobin 10.4 g/dL (12.9-16.9); INR 1.6; Mean Corpuscular Hemoglobin 27.4 pg (28.0-33.3); Mean Corpuscular Volume 85.8 fL (83.0-100.0); Mean Platelet Volume 9.9 fL (9.4-12.4); Platelet Count 140 K/mcL (140-400); Red Blood Count 3.79 M/mcL (4.19-5.50); Red Cell Distribution Width 13.7 % (11.5-14.5)
[2016-10-17 16:32] LABS: Activated Partial Thrombo Time 35.6 Seconds (26.0-36.0)
[2016-10-17 16:38] LABS: Albumin 2.3 g/dL (3.5-5.0); Albumin/Globulin Ratio 0.8 (1.1-2.2); Bilirubin,Direct 0.4 mg/dL (0.0-0.5); Bilirubin,Indirect 0.2 mg/dL (0.0-1.2); Bilirubin,Total 0.6 mg/dL (0.2-1.2); Calcium 8.7 mg/dL (8.6-10.8); Magnesium 2.4 mg/dL (1.6-2.6); Potassium 3.4 mEq/L (3.5-4.5); Total Protein 5.3 g/dL (6.0-8.3)
[2016-10-17 16:41] LABS: Phosphorous 1.2 mg/dL (2.3-4.7)
[2016-10-17 16:50] LABS: Lymphocytes # 0.7 K/mcL (0.6-4.6); Neutrophils # 2.7 K/mcL (1.6-8.9)
[2016-10-17 16:52] LABS: Platelet Estimate Normal (Normal)
[2016-10-17 16:54] LABS: Ionized Calcium 1.17 mmol/L (1.15-1.35)
[2016-10-17] MEDS ORDERED: Potassium Phosphate 44 MEQ in 0.9 % Sodium Chloride 250 ML IVPB ONE (17:01)
[2016-10-17] MEDS ORDERED: Potassium Chloride 40 MEQ/200 ML BAG IVPB PRN (17:01)
[2016-10-17] MEDS ORDERED: *HR* Dextrose 50 % in Water (Syg) 50 ML SYRINGE IVP PRN (17:07)
[2016-10-17] MEDS: Insulin Human Regular 100 UNIT in 0.9 % Sodium Chloride 100 ML IVC SCH (17:46)
[2016-10-17 20:18] LABS: ABG Base Excess -2.1 mEq/L (-2.0 to 3.0); ABG HCO3 22.2 mEQ/L (21-27); ABG Oxygen Saturation 100 % (95-98); ABG PCO2 35 mmHg (35-45); ABG PH 7.41 pH Units (7.32-7.45); ABG PO2 194 mmHg (85-104); ABG TCO2 23.3 mEq/L (20-26); Blood Gas FiO2 60 %
[2016-10-17] MEDS ORDERED: 0.9 % Sodium Chloride 1,000 ML ONE (20:22)
[2016-10-17 20:23] LABS: Ionized Calcium 1.18 mmol/L (1.15-1.35)
[2016-10-17 20:32] LABS: Calcium 8.8 mg/dL (8.6-10.8); Magnesium 2.3 mg/dL (1.6-2.6); Phosphorous 1.5 mg/dL (2.3-4.7); Potassium 3.7 mEq/L (3.5-4.5)
[2016-10-17 20:41] LABS: Bilirubin,Urine Negative (Negative); Blood,Urine Trace (Negative); Clarity,Urine Cloudy (Clear); Color,Urine Yellow (Yellow); Glucose,Urine (UA) >=1000 mg/dL (Normal); Ketones,Urine Negative (Negative); Leukocyte Esterase,Urine Negative (Negative); Nitrite,Urine Negative (Negative); Protein,Urine Trace mg/dL (Neg-Trace); Urobilinogen,Urine Normal (Normal)
[2016-10-17 20:43] LABS: Bacteria,Urine None Seen per hpf (None-Few); Squamous Epithelial Cell,Urine Many per lpf (None-Few)
[2016-10-17 20:58] LABS: Hyaline Casts,Urine None Seen per lpf (None-Few); RBC,Urine 0-3 per hpf (0-3)
[2016-10-18] MEDS: Insulin Human Regular 100 UNIT in 0.9 % Sodium Chloride 100 ML IVC SCH ×2 (00:08→20:01)
[2016-10-18 00:21] LABS: ABG Base Excess -1.5 mEq/L (-2.0 to 3.0); ABG HCO3 22.7 mEQ/L (21-27); ABG Oxygen Saturation 99 % (95-98); ABG PCO2 35 mmHg (35-45); ABG PH 7.42 pH Units (7.32-7.45); ABG PO2 158 mmHg (85-104); ABG TCO2 23.8 mEq/L (20-26)
[2016-10-18 00:22] LABS: Blood Gas FiO2 50 %; Blood Gas PEEP 5 cm H2O
[2016-10-18 00:43] LABS: Hematocrit 30.4 % (37.5-50.1); Hemoglobin 10.1 g/dL (12.9-16.9); Mean Corpuscular HGB Conc 33.2 g/dL (31.6-35.5); Mean Corpuscular Hemoglobin 28.1 pg (28.0-33.3); Mean Corpuscular Volume 84.7 fL (83.0-100.0); Mean Platelet Volume 9.9 fL (9.4-12.4); Monocytes # 0.2 K/mcL (0.0-1.3); Platelet Count 133 K/mcL (140-400); Red Blood Count 3.59 M/mcL (4.19-5.50); Red Cell Distribution Width 13.5 % (11.5-14.5)
[2016-10-18 00:49] LABS: INR 1.4; Prothrombin Time 15.1 Seconds (9.4-12.1)
[2016-10-18 00:51] LABS: Activated Partial Thrombo Time 33.6 Seconds (26.0-36.0)
[2016-10-18 00:53] LABS: Ionized Calcium 1.2 mmol/L (1.15-1.35)
[2016-10-18 01:02] LABS: Albumin 2.5 g/dL (3.5-5.0); Albumin/Globulin Ratio 0.8 (1.1-2.2); Bilirubin,Direct 0.4 mg/dL (0.0-0.5); Bilirubin,Indirect 0.4 mg/dL (0.0-1.2); Bilirubin,Total 0.8 mg/dL (0.2-1.2); Total Protein 5.5 g/dL (6.0-8.3)
[2016-10-18 01:05] LABS: Calcium 8.8 mg/dL (8.6-10.8); Lymphocytes # 0.7 K/mcL (0.6-4.6); Magnesium 2.3 mg/dL (1.6-2.6); Neutrophils # 4.1 K/mcL (1.6-8.9); Phosphorous 3.1 mg/dL (2.3-4.7); Potassium 3.5 mEq/L (3.5-4.5)
[2016-10-18 01:06] LABS: Dohle Bodies Present (Not Present); Large Platelets Present (Not Present); Platelet Estimate Slight Decrease (Normal)
[2016-10-18] MEDS: Piperacillin/Tazobactam 3.375 GM in D5% in Water (Mini-Bag+) 100 ML IVPB SCH ×3 (01:24→17:03)
[2016-10-18] MEDS: Norepinephrine 4 MG in D5% in Water 250 ML IVC SCH (01:27)
[2016-10-18] MEDS: Vasopressin 40 UNIT in D5% in Water 100 ML IV SCH (01:28)
[2016-10-18] MEDS ORDERED: niCARdipine 20 MG/200 ML MLS IVC ONE (02:12)
[2016-10-18] MEDS: niCARdipine 20 MG/200 ML MLS IVC SCH ×3 (02:19→20:02)
[2016-10-18] MEDS: D5% in 0.2% NACL w KCl 1,000 ML IVC SCH ×2 (03:23→13:55)
[2016-10-18 04:20] LABS: ABG HCO3 21.3 mEQ/L (21-27); ABG Oxygen Saturation 97 % (95-98); ABG PCO2 30 mmHg (35-45); ABG PH 7.46 pH Units (7.32-7.45); ABG PO2 91 mmHg (85-104); ABG TCO2 22.2 mEq/L (20-26); Blood Gas FiO2 40 %
[2016-10-18 04:31] LABS: Ionized Calcium 1.19 mmol/L (1.15-1.35)
[2016-10-18 04:41] LABS: Calcium 8.9 mg/dL (8.6-10.8); Magnesium 2.1 mg/dL (1.6-2.6); Phosphorous 3.4 mg/dL (2.3-4.7); Potassium 3.6 mEq/L (3.5-4.5)
[2016-10-18] MEDS ORDERED: 0.9 % Sodium Chloride 1,000 ML ONE (05:25)
[2016-10-18] MEDS ORDERED: Calcium Chloride 1,000 MG in 0.9 % Sodium Chloride 100 ML IVPB ONE (05:29)
[2016-10-18] MEDS: Potassium Chloride 40 MEQ/200 ML BAG IVPB PRN (06:34)
[2016-10-18] MEDS: Furosemide 20 MG/2 ML VIAL IVP SCH (08:03)
[2016-10-18 08:06] LABS: Basophils % 0.4 %; Hematocrit 30.8 % (37.5-50.1); Hemoglobin 10.3 g/dL (12.9-16.9); Immature Granulocytes % 0.7 % (0-4); Lymphocytes # 0.6 K/mcL (0.6-4.6); Lymphocytes % 7.5 %; Mean Corpuscular HGB Conc 33.4 g/dL (31.6-35.5); Mean Corpuscular Hemoglobin 28.1 pg (28.0-33.3); Mean Corpuscular Volume 84.2 fL (83.0-100.0); Mean Platelet Volume 9.8 fL (9.4-12.4); Monocytes # 0.2 K/mcL (0.0-1.3); Monocytes % 3.1 %; Neutrophils # 6.6 K/mcL (1.6-8.9); Platelet Count 127 K/mcL (140-400); Red Blood Count 3.66 M/mcL (4.19-5.50); Red Cell Distribution Width 13.6 % (11.5-14.5); Segmented Neutrophils % 88.3 %
[2016-10-18 08:09] LABS: ABG Base Excess -3.7 mEq/L (-2.0 to 3.0); ABG HCO3 20.1 mEQ/L (21-27); ABG Oxygen Saturation 99 % (95-98); ABG PCO2 31 mmHg (35-45); ABG PH 7.42 pH Units (7.32-7.45); ABG PO2 123 mmHg (85-104); ABG TCO2 21.1 mEq/L (20-26); Blood Gas FiO2 45 %
[2016-10-18 08:19] LABS: INR 1.3; Prothrombin Time 14.6 Seconds (9.4-12.1)
[2016-10-18 08:22] LABS: Activated Partial Thrombo Time 32.9 Seconds (26.0-36.0)
[2016-10-18 08:23] LABS: Albumin 2.5 g/dL (3.5-5.0); Albumin/Globulin Ratio 0.8 (1.1-2.2); Bilirubin,Direct 0.6 mg/dL (0.0-0.5); Bilirubin,Indirect 0.5 mg/dL (0.0-1.2); Bilirubin,Total 1.1 mg/dL (0.2-1.2); Globulin 3.1 g/dL (2.4-3.5); Total Protein 5.6 g/dL (6.0-8.3)
[2016-10-18 08:31] LABS: Platelet Estimate Slight Decrease (Normal)
[2016-10-18 09:46] LABS: Calcium 9.4 mg/dL (8.6-10.8); Magnesium 2.1 mg/dL (1.6-2.6); Phosphorous 3.6 mg/dL (2.3-4.7); Potassium 4.5 mEq/L (3.5-4.5)
--- NOTE | 2016-10-18 11:37 | IR Procedure Note ---
Date of procedure: 10/18/16 Consent Obtained: Verbal consent (consent inferred from consent for organ donation per [facility]), Written consent Indications: liver donor, hep C Procedure Performed: liver bx Site/Technique: right hepatic lobe Results/Findings: 2 cores Estimated blood loss (cc): 2 Complications: None; Tolerated procedure well Post Procedure Treatment Plan: per [facility]
[2016-10-18 12:10] LABS: ABG Base Excess -1.8 mEq/L (-2.0 to 3.0); ABG HCO3 21.5 mEQ/L (21-27); ABG Oxygen Saturation 98 % (95-98); ABG PCO2 31 mmHg (35-45); ABG PH 7.45 pH Units (7.32-7.45); ABG PO2 103 mmHg (85-104); ABG TCO2 22.5 mEq/L (20-26); Blood Gas FiO2 45 %
[2016-10-18 12:27] LABS: Calcium 9.6 mg/dL (8.6-10.8); Magnesium 2.1 mg/dL (1.6-2.6); Phosphorous 2.8 mg/dL (2.3-4.7); Potassium 4.5 mEq/L (3.5-4.5)
[2016-10-18 12:29] LABS: Ionized Calcium 1.31 mmol/L (1.15-1.35)
[2016-10-18] MEDS ORDERED: 0.9 % Sodium Chloride 500 ML IVC ONE (13:09)
[2016-10-18] MEDS: LEVOTHYROXINE SODIUM IV SCH (15:08)
[2016-10-18] MEDS: SODIUM CHLORIDE 0.9% IV SCH (15:08)
[2016-10-18 15:19] LABS: Bilirubin,Urine Negative (Negative); Blood,Urine Trace (Negative); Clarity,Urine Clear (Clear); Color,Urine Yellow (Yellow); Glucose,Urine (UA) Normal (Normal); Ketones,Urine Negative (Negative); Leukocyte Esterase,Urine Negative (Negative); Nitrite,Urine Negative (Negative); Protein,Urine Negative (Neg-Trace); Specific Gravity,Urine 1.005 (1.010-1.025); Urobilinogen,Urine Normal (Normal)
[2016-10-18 15:22] LABS: Bacteria,Urine None Seen per hpf (None-Few); Hyaline Casts,Urine None Seen per lpf (None-Few); RBC,Urine 0-3 per hpf (0-3); Squamous Epithelial Cell,Urine Few per lpf (None-Few); WBC,Urine 0-3 per hpf (0-3)
[2016-10-18 16:15] LABS: ABG HCO3 21.7 mEQ/L (21-27); ABG Oxygen Saturation 98 % (95-98); ABG PCO2 32 mmHg (35-45); ABG PH 7.44 pH Units (7.32-7.45); ABG PO2 103 mmHg (85-104); ABG TCO2 22.7 mEq/L (20-26)
[2016-10-18 16:16] LABS: Blood Gas FiO2 45 %
[2016-10-18 16:18] LABS: INR 1.3; Prothrombin Time 13.7 Seconds (9.4-12.1)
[2016-10-18 16:20] LABS: Activated Partial Thrombo Time 31.1 Seconds (26.0-36.0)
[2016-10-18 16:37] LABS: Albumin 2.4 g/dL (3.5-5.0); Albumin/Globulin Ratio 0.8 (1.1-2.2); Bilirubin,Direct 0.4 mg/dL (0.0-0.5); Bilirubin,Indirect 0.5 mg/dL (0.0-1.2); Bilirubin,Total 0.9 mg/dL (0.2-1.2); Calcium 9.5 mg/dL (8.6-10.8); Globulin 3.2 g/dL (2.4-3.5); Magnesium 2.1 mg/dL (1.6-2.6); Phosphorous 3.3 mg/dL (2.3-4.7); Potassium 4.7 mEq/L (3.5-4.5); Total Protein 5.6 g/dL (6.0-8.3)
[2016-10-18 17:04] LABS: Ionized Calcium 1.3 mmol/L (1.15-1.35)
[2016-10-18 17:20] LABS: Basophils % 0.1 %; Hemoglobin 10.4 g/dL (12.9-16.9); Immature Granulocytes % 0.6 % (0-4); Lymphocytes # 0.4 K/mcL (0.6-4.6); Lymphocytes % 4.7 %; Mean Corpuscular HGB Conc 32.5 g/dL (31.6-35.5); Mean Corpuscular Hemoglobin 27.4 pg (28.0-33.3); Mean Corpuscular Volume 84.4 fL (83.0-100.0); Mean Platelet Volume 10.4 fL (9.4-12.4); Monocytes # 0.3 K/mcL (0.0-1.3); Monocytes % 3.9 %; Nucleated Red Blood Cells 0.2 /100 WBC (0); Platelet Count 161 K/mcL (140-400); Red Blood Count 3.79 M/mcL (4.19-5.50); Red Cell Distribution Width 13.7 % (11.5-14.5); Segmented Neutrophils % 90.7 %
[2016-10-18 17:28] LABS: Neutrophils # 7.6 K/mcL (1.6-8.9)
[2016-10-18 18:53] LABS: Platelet Estimate Normal (Normal)
[2016-10-18 20:12] LABS: ABG Base Excess -2.6 mEq/L (-2.0 to 3.0); ABG HCO3 21.2 mEQ/L (21-27); ABG Oxygen Saturation 99 % (95-98); ABG PCO2 32 mmHg (35-45); ABG PH 7.43 pH Units (7.32-7.45); ABG PO2 115 mmHg (85-104); ABG TCO2 22.2 mEq/L (20-26)
[2016-10-18 20:13] VITALS: BP 128/66
[2016-10-18 20:13] LABS: Blood Gas FiO2 45 %
[2016-10-18] MEDS ORDERED: Ringers Solution, Lactated 1,000 ML ONE (20:19)
[2016-10-18] MEDS ORDERED: *HR* Rocuronium Bromide 50 MG/5 ML VIAL ONE (20:29)
[2016-10-18 20:33] LABS: Ionized Calcium 1.25 mmol/L (1.15-1.35)
[2016-10-18] MEDS ORDERED: [UNRECOGNIZED DRUG - OTHER] IVC ONE (20:36)
[2016-10-18] MEDS ORDERED: HEPARIN 25000 UNIT/500 ML IVC ONE (20:36)
[2016-10-18 20:40] LABS: Calcium 9.3 mg/dL (8.6-10.8); Magnesium 2.1 mg/dL (1.6-2.6); Phosphorous 4.4 mg/dL (2.3-4.7); Potassium 4.8 mEq/L (3.5-4.5)
[2016-10-18] MEDS ORDERED: Mannitol 20% 100 GM/500 ML IV.SOLN IVC SCH (21:00)
[2016-10-19] MEDS ORDERED: SODIUM CHLORIDE 0.9% IV SCH (01:00)
[2016-10-19] MEDS ORDERED: LEVOTHYROXINE SODIUM IV SCH (01:00)
[2016-10-20 08:13] LABS: CKMB Percent NOT DONE (0.0-5.0)
== END 2016-10-18 21:00 | disposition other institution (70) | DRG 951 ==
LOC: ICNU 22:20
PROVIDERS: ADMIT Internal Medicine Pulmonary Disease; ATTEND Internal Medicine Pulmonary Disease
PROC: IRLIVER (2016-10-18 12:00)